=== PATIENT | male | born 1960 | race Caucasian/White ===

== ENCOUNTER → 2017-10-20 10:37 | Outpatient (CLI) | payer OTHER, SELFPAY ==
--- NOTE | 2017-10-20 10:49 | XR_ITS ---
XR chest 2V HISTORY: ITS.REASON: BRONCHITIS ORDERING PHYSICIAN: CAREY Ellis PATIENT AGE: 57 years COMPARISON: None available FINDINGS: The cardiomediastinal silhouette and pulmonary vascularity are within normal limits. The lungs are clear without infiltrates, suspicious nodules, or pleural effusions. No acute bony abnormalities. IMPRESSION: Negative chest, no acute finding
== END ==
PROVIDERS: PCP Family Medicine; Visit Provider Physician Assistant
DX: J40 Bronchitis, not specified as acute or chronic (principal)
CPT/HCPCS: 71046

== ENCOUNTER → 2018-01-11 14:06 | Outpatient (CLI) | payer OTHER, SELFPAY ==
--- NOTE | 2018-01-11 14:16 | XR_ITS ---
XR knee RT 3V HISTORY: ITS.REASON: RT KNEE PAIN ORDERING PHYSICIAN: Freddy Conrad MD PATIENT AGE: 57 years COMPARISON: None FINDINGS: No fracture or dislocation. No lytic or blastic change. Normal mineralization. There are mild osteoarthritic changes of the medial compartment and patellofemoral joint. No other significant findings IMPRESSION: Mild osteoarthritis
== END ==
PROVIDERS: PCP Family Medicine; Visit Provider Family Medicine
DX: M25.561 Pain in right knee (principal)
CPT/HCPCS: 73562

== ENCOUNTER → 2018-01-24 15:32 | Outpatient (CLI) | payer OTHER, SELFPAY ==
--- NOTE | 2018-01-24 15:41 | MR_ITS ---
MR knee RT wo con HISTORY: Right knee pain and swelling ITS.REASON: ACUTE PAIN OF RIGHT KNEE ORDERING PHYSICIAN: Freddy Conrad MD PATIENT AGE: 57 years COMPARISON: 01/11/2018 TECHNIQUE: Standard multiplanar multiecho sequences are performed without contrast. FINDINGS: The cruciate ligaments, collateral ligaments, patellar tendon, and quadriceps tendon have an unremarkable appearance. There is a nondisplaced horizontal tear involving the anterior margin of the lateral meniscus. No evidence of tear of the medial meniscus. The patellar cartilage is well preserved. There is a moderate size knee joint effusion with moderate amount fluid in the suprapatellar region and within the knee joint proper. Multiple varicosities are present along the posterior and medial thigh and medial knee region. There is a small amount subcutaneous edema in the infrapatellar region. No fracture or dislocation. There are mild osteoarthritic changes with some mild decrease in the joint space and minimal osteophyte formation. IMPRESSION: 1. Nondisplaced horizontal tear of the anterior horn of the lateral meniscus. 2. Moderate sized knee joint effusion with a moderate amount fluid in the suprapatellar region. 3. Mild osteoarthritis. 4. Lower extremity varicosities
== END ==
PROVIDERS: Family Provider Family Medicine; PCP Family Medicine; Visit Provider Family Medicine
DX: M25.561 Pain in right knee (principal)
CPT/HCPCS: 73721

== ENCOUNTER → 2018-02-03 13:04 | Outpatient (CLI) | payer OTHER, SELFPAY ==
[2018-02-03 13:31] LABS: Basophils # 0.1 K/mm3 (0-0.2); Basophils % 0.6 % (0.1-2.0); Eosinophils # 0.4 K/mm3 (0.0-0.4); Hemoglobin 16.8 g/dL (14.1-18.0); Lymphocytes # 1.6 K/mm3 (0.7-4.5); Lymphocytes % 20.2 K/mm3 (10-50); Mean Corpuscular HGB Conc 34.4 g/dL (31.8-35.4); Mean Corpuscular Hemoglobin 31.7 pg (27.0-31.2); Mean Corpuscular Volume 92.2 fl (80-94); Mean Platelet Volume 7.9 fl (7.4-10.4); Monocytes # 0.4 K/mm3 (0.1-1.0); Monocytes % 4.8 % (1.7-9.3); Neutrophils # 5.5 K/mm3 (1.8-7.8); Neutrophils % 69.5 % (37.0-80.0); Platelet Count 208 K/mm3 (142-424); Red Blood Count 5.31 M/mm3 (4.60-6.20); Red Cell Distribution Width 12.5 % (11.5-17.5); White Blood Count 7.9 K/mm3 (4.8-10.8)
[2018-02-03 16:04] LABS: Alanine Aminotransferase 45 U/L (12-78); Albumin Level 4.3 gm/dL (3.4-5.0); Albumin/Globulin Ratio 1.3 (1.1-1.8); Alkaline Phosphatase 67 U/L (46-116); Anion Gap 10.6 mEq/L (5-15); Bilirubin,Total 0.4 mg/dL (0.2-1.0); Blood Urea Nitrogen 15 mg/dL (7-18); Calcium 9.4 mg/dL (8.5-10.1); Carbon Dioxide 32 mmol/L (21.0-32.0); Chloride 104 mmol/L (98-107); Creatinine,Serum 0.85 mg/dL (0.70-1.30); Estimated Glomerular Filt Rate 93 ml/min (>60); GFR (African American) 112 ML/MIN (>60); Globulin 3.4 gm/dl (1.3-3.2); Glucose 149 mg/dL (74-106); Sodium 142 mmol/L (136-145); Total Protein,Serum 7.7 gm/dL (6.4-8.2)
[2018-02-03 16:15] LABS: Aspartate Amino Transferase 30 U/L (15-37); Potassium 4.6 mmoL/L (3.5-5.1)
== END ==
PROVIDERS: Visit Provider Orthopaedic Surgery
DX: Z01.818 Encounter for other preprocedural examination (principal)
CPT/HCPCS: 36415; 80053; 85025

== ENCOUNTER 2018-03-09 08:30 | Outpatient (RCR) | payer OTHER, SELFPAY | END 2018-03-09 08:31 | disposition home or self-care (01) | LOC: PT 08:30 | PROVIDERS: Family Provider Family Medicine; PCP Family Medicine; Visit Provider Orthopaedic Surgery | DX: M25.561 Pain in right knee (principal) | CPT/HCPCS: 97014; 97016; 97110; 97163; G0283 ==

== ENCOUNTER → 2019-01-10 08:48 | Outpatient (POV) | payer BC, SELFPAY | PROVIDERS: Visit Provider Dermatology | DX: Z00.00 Encounter for general adult medical examination without abnormal findings (principal) ==

== ENCOUNTER → 2019-04-04 15:51 | Outpatient (CLI) | payer BC, SELFPAY | PROVIDERS: Visit Provider Urology | DX: R39.89 Other symptoms and signs involving the genitourinary system (principal) | CPT/HCPCS: 87086 ==

== ENCOUNTER → 2019-04-05 08:14 | Outpatient (CLI) | payer BC, SELFPAY ==
[2019-04-05 09:00] LABS: Basophils % 0.4 % (0.1-2.0); Eosinophils # 0.1 K/mm3 (0.0-0.4); Hematocrit 47.7 % (42.0-52.0); Hemoglobin 15.8 g/dL (14.1-18.0); Lymphocytes # 1.2 K/mm3 (0.7-4.5); Lymphocytes % 18.4 % (10-50); Mean Corpuscular HGB Conc 33.1 g/dL (31.8-35.4); Mean Corpuscular Volume 93.6 fl (80-94); Mean Platelet Volume 7.8 fl (7.4-10.4); Monocytes # 0.5 K/mm3 (0.1-1.0); Monocytes % 6.8 % (1.7-9.3); Neutrophils # 4.8 K/mm3 (1.8-7.8); Neutrophils % 72.4 % (37.0-80.0); Platelet Count 156 K/mm3 (142-424); Red Cell Distribution Width 12.5 % (11.5-17.5); White Blood Count 6.6 K/mm3 (4.8-10.8)
[2019-04-07 14:03] LABS: Alanine Aminotransferase 68 U/L (12-78); Albumin/Globulin Ratio 1.3 (1.1-1.8); Alkaline Phosphatase 66 U/L (46-116); Aspartate Amino Transferase 36 U/L (15-37); Blood Urea Nitrogen 15 mg/dL (7-18); Calcium 8.5 mg/dL (8.5-10.1); Carbon Dioxide 25 mmol/L (21.0-32.0); Chloride 100 mmol/L (98-107); Estimated Glomerular Filt Rate 76 ml/min (>60); GFR (African American) 93 ML/MIN (>60); Globulin 3.1 gm/dl (1.3-3.2); Glucose 164 mg/dL (74-106); Sodium 136 mmol/L (136-145); Thyroid Stimulating Hormone 1.85 uIU/ml (0.358-3.740); Total Protein,Serum 7.1 gm/dL (6.4-8.2)
[2019-04-12 07:09] LABS: Testosterone, Total, LC/MS 150.1 ng/dL (264.0-916.0); Testosterone,Free 7.5 pg/mL (7.2-24.0)
[2019-04-13 10:38] LABS: Vitamin D 25 Hydroxy 35.6
[2019-04-13 10:39] LABS: Vitamin B12 641
== END ==
PROVIDERS: Physician Assistant; Visit Provider Urology
DX: R53.83 Other fatigue (principal); R50.9 Fever, unspecified; R53.1 Weakness; E29.1 Testicular hypofunction
CPT/HCPCS: 36415; 80053; 82607; 82652; 84402; 84403; 84443; 85025; 86665

== ENCOUNTER → 2019-04-14 09:38 | Outpatient (CLI) | payer BC, SELFPAY ==
[2019-04-16 22:51] LABS: EBV Ab VCA, IgM <36.0 U/mL (0.0-35.9)
== END ==
PROVIDERS: Visit Provider Physician Assistant
DX: R50.9 Fever, unspecified (principal)
CPT/HCPCS: 36415; 86665

== ENCOUNTER → 2019-04-20 09:43 | Outpatient (CLI) | payer BC, SELFPAY ==
--- NOTE | 2019-04-20 | NVE_ITS ---
Venous Exam Indications: 729.81 Swelling of limb. IMPRESSIONS 1. No evidence of deep vein thrombosis involving the right lower extremity 2. Medium-sized superficial vein thrombosis involving the superficial veins of the right lower extremity and right great saphenous vein History: Right lower extremity pain. Swelling of the right lower extremity. Redness of the right lower extremity. Thrombophlebitis involving the right lower extremity. Right lower extremity venous duplex evaluation. Doppler flow study including spectral analysis, color and valladares scale imaging. Location: Vascular laboratory. Patient status: Outpatient. CRITICAL FINDINGS - Reported to: JENIFER Gupta - Read back and verified. - 04/20/19 - 10:15 - RLE negative for DVT. Multiple SVT's seen c/w thrombophlebitis Tables: Venous flow and imaging: + + + + Location Overall Flow properties + + + + Right common femoral Patent Normal phasicity; spontaneous; normal augmentation; compressible + + + + Right saphenofemoral Patent Compressible junction + + + + Right profunda femoral Patent Compressible + + + + Right femoral Patent Normal phasicity; spontaneous; normal augmentation; compressible + + + + Right greater saphenous Totally occluded Absent; diminished spontaneity; no augmentation; noncompressible + + + + Right popliteal Patent Normal phasicity; spontaneous; normal augmentation; compressible + + + + Right posterior tibial Patent Compressible + + + + Right peroneal Patent Compressible + + + + Right gastrocnemius Patent Compressible + + + + Right soleal Patent Compressible + + + + (Report amended ) Electronically signed by: Matty Joy [id number]
== END ==
PROVIDERS: PCP Family Medicine; Visit Provider Physician Assistant
DX: M79.604 Pain in right leg (principal)
CPT/HCPCS: 93971

== ENCOUNTER → 2019-07-05 13:47 | Outpatient (CLI) | payer BC, SELFPAY ==
--- NOTE | 2019-07-05 | CA_ITS ---
APPROVED REPORT Right Lower Extremity Venous Study for DVT. Adjunct Physical Education Instructor: DARLYN Indications Varicose Veins History of thrombophlebitis, history of SVT 04/2019 Risk Factors Prior Phlebitis/DVT Past History SVT : Date : 04/2019 Prior Lower Extremity Venous Duplex Date : 04/2019 Medications Started Xarelto April 2019. Takes daily. Vein Imaging CFV (R): compressive, spontaneous, phasic, augmentation FEM (R): compressive, spontaneous, phasic, augmentation POP (R): compressive, spontaneous, phasic, augmentation PTV (R): Compressible GSV (R): Non-Compressible, Thrombus SSV (R): Compressible Peroneals (R):Compressible GAS (R): Compressible Findings SVT seen in the right proximal GSV unchanged from study done 04/20/19. No DVT visualized in right lower extremity. Conclusion SVT seen in the right proximal GSV unchanged from study done 04/20/19. No DVT visualized in right lower extremity. Electronically signed by : Saulo Fontaine, 07/05/2019 16:09:25
== END ==
PROVIDERS: PCP Family Medicine; Visit Provider Physician Assistant
DX: I82.811 Embolism and thrombosis of superficial veins of right lower extremity (principal)
CPT/HCPCS: 93971

== ENCOUNTER → 2019-10-20 13:52 | Outpatient (CLI) | payer BC, SELFPAY ==
--- NOTE | 2019-10-20 13:56 | CA_ITS ---
APPROVED REPORT Bilateral Lower Extremity Venous Study for DVT. Mapping Specialist: CT Indications follow up from SVT 04/2019 Past History SVT : Medications Xarelto since April 2019 Daily Vein Imaging CFV (R): compressive, spontaneous, phasic, augmentation SFJ (R): compressive, spontaneous, phasic, augmentation FEM (R): compressive, spontaneous, phasic, augmentation POP (R): compressive, spontaneous, phasic, augmentation DFV (R): compressive, spontaneous, phasic, augmentation PTV (R): compressive, spontaneous, phasic, augmentation GSV (R): Partially Compressible Findings No evidence of DVT in the veins scanned of the right lower extremity. Chronic SVT in the GSV. Improved from last exam 07/05/19 Conclusion No evidence of DVT in the veins scanned of the right lower extremity. Chronic SVT in the GSV. Improved from last exam 07/05/19 Electronically signed by : Matty Joy MD 10/20/2019 17:04:51
== END ==
PROVIDERS: PCP Family Medicine; Visit Provider Physician Assistant
DX: I82.811 Embolism and thrombosis of superficial veins of right lower extremity (principal)
CPT/HCPCS: 93971

== ENCOUNTER → 2020-04-15 14:09 | Outpatient (CLI) | payer BC, SELFPAY ==
--- NOTE | 2020-04-15 | CA_ITS ---
APPROVED REPORT Right Lower Extremity Venous Study for DVT. Manager Corporate Communications: CT Indications GSV F/U Medications Xarelto Vein Imaging CFV (R): compressive, spontaneous, phasic, augmentation SFJ (R): compressive, spontaneous, phasic, augmentation FEM (R): compressive, spontaneous, phasic, augmentation POP (R): compressive, spontaneous, phasic, augmentation DFV (R): compressive, spontaneous, phasic, augmentation PTV (R): compressive, spontaneous, phasic, augmentation GSV (R): Partially Compressible SSV (R): compressive, spontaneous, phasic, augmentation Peroneals (R):compressive, spontaneous, phasic, augmentation GAS (R): compressive, spontaneous, phasic, augmentation Incompetent Perforators Findings RLE neg for DVT. RLE + for a chronic SVT approx 1.5 inch mid thigh. Improved from last exam. No reflux noted. Conclusion RLE neg for DVT. RLE + for a chronic SVT approx 1.5 inch mid thigh. Improved from last exam. No reflux noted. Electronically signed by : Matty Joy MD 04/15/2020 19:01:14
== END ==
PROVIDERS: PCP Family Medicine; Visit Provider Physician Assistant
DX: I82.811 Embolism and thrombosis of superficial veins of right lower extremity (principal)
CPT/HCPCS: 93971

== ENCOUNTER → 2021-02-14 16:17 | Outpatient (CLI) | payer BC, SELFPAY ==
--- NOTE | 2021-02-14 16:21 | XR_ITS ---
PROCEDURE: XR KNEE RT 3V CLINICAL INDICATION: ACUTE PAIN OF RT KNEE COMPARISON: CR [id number] XR knee RT 3V from 01/11/2018 FINDINGS: No fracture or dislocation. No lytic or blastic change. There is normal mineralization. Osteoarthritic changes are present involving all 3 compartments. Slightly progressed in the medial compartment. Other findings:None. IMPRESSION: Mild osteoarthritis Dictated by: Matty Joy MD 02/17/2021 08:26 Matty Joy MD in [place] 02/17/2021 08:26
== END ==
PROVIDERS: PCP Physician Assistant; Visit Provider Physician Assistant
DX: M25.561 Pain in right knee (principal)
CPT/HCPCS: 73562

== ENCOUNTER → 2021-04-11 09:42 | Outpatient (CLI) | payer BC, SELFPAY ==
--- NOTE | 2021-04-11 09:52 | XR_ITS ---
PROCEDURE: XR LUMBAR SPINE MIN 4V CLINICAL INDICATION: LOW BACK PAIN COMPARISON: CR LS5 LUMBAR SPINE 5 VIEWS from 04/09/2016 FINDINGS: Mild wedge compression changes involve T11 and T12 similar compared to 04/09/2016. Degenerative disc disease is present at T11-T12 T12-L1 L1-L2 L4-5 and L5-S1. Small anterior osteophytes are present at T11-T12 and L1 slightly progressed. There is mild retrolisthesis of L1 on L2. Facet arthritic changes are present at L5-S1.. There are mild degenerative changes of the SI joints bilaterally. IMPRESSION: Lower thoracic lumbar spondylosis as described above with chronic wedge compression changes of T11 and T12. Dictated by: Matty Joy MD 04/11/2021 10:21 Matty Joy MD in [place] 04/11/2021 10:21
== END ==
PROVIDERS: PCP Physician Assistant; Visit Provider Physician Assistant
DX: M54.5 Low back pain (principal)
CPT/HCPCS: 72110

== ENCOUNTER → 2021-04-24 07:43 | Outpatient (CLI) | payer BC, SELFPAY ==
--- NOTE | 2021-04-24 07:48 | MR_ITS ---
PROCEDURE: MR LUMBAR SPINE WO CON CLINICAL INDICATION: ACUTE MIDLINE LOW BACK PAIN COMPARISON: No exams were available for comparison TECHNIQUE: Multiplanar, multisequence MRI lumbar spine performed without contrast. FINDINGS: Vertebral body heights and alignment are maintained.There is no evidence of bone marrow edema or infiltrative process.The conus medullaris terminates at the L1 vertebral body level. Visualized thoracic spinal cord is unremarkable without evidence of mass signal abnormality. Focal T2 hyperintense lesions are noted in the kidneys bilaterally measuring up to 2 centimeters. Further details by level follow below T12-L1: Small disc bulge without significant canal or foraminal narrowing. L1-2: Broad-based disc bulge and bilateral facet joint hypertrophy causes moderate canal narrowing with crowding of the nerve roots within the thecal sac. There is [id number] bilateral foraminal narrowing. L2-3: Bilateral facet joint hypertrophy is noted causes posterior thecal sac indentation. No significant foraminal narrowing. L3-4: No canal stenosis or neural foraminal narrowing. L4-5: Small broad-based disc bulge causes mild canal narrowing. There is moderate right foraminal narrowing. L5-S1: Broad-based disc bulge, worse on the left causes moderate to severe left foraminal narrowing. No significant canal or right foraminal narrowing is noted. IMPRESSION: Minor multilevel degenerative changes, worse at L1-2 and L5-S1 levels. Moderate to severe left foraminal narrowing at L5-S1. Dictated by: Ivette Solorzano 04/24/2021 11:33 Ivette Solorzano in [place] 04/24/2021 11:33
== END ==
PROVIDERS: PCP Physician Assistant; Visit Provider Physician Assistant
DX: M54.5 Low back pain (principal)
CPT/HCPCS: 72148; 76376

== ENCOUNTER → 2021-05-20 08:29 | Outpatient (POV) | payer BC, SELFPAY | PROVIDERS: Visit Provider Dermatology | DX: Z00.00 Encounter for general adult medical examination without abnormal findings (principal) ==

== ENCOUNTER → 2021-06-18 09:30 | Outpatient (CLI) | payer BC, SELFPAY | PROVIDERS: PCP Family Medicine; Visit Provider Nurse Practitioner | DX: Z20.822 Contact with and (suspected) exposure to COVID-19 (principal) | CPT/HCPCS: C9803; U0003; U0005 ==

== ENCOUNTER → 2021-09-24 08:19 | Outpatient (CLI) | payer BC, SELFPAY | PROVIDERS: PCP Family Medicine; Visit Provider Nurse Practitioner | DX: Z20.822 Contact with and (suspected) exposure to COVID-19 (principal) | CPT/HCPCS: C9803; U0003; U0005 ==

== ENCOUNTER → 2021-10-24 10:00 | Outpatient (CLI) | payer BC, SELFPAY ==
--- NOTE | 2021-10-24 10:15 | XR_ITS ---
FINAL REPORT TECHNIQUE: 3 views CLINICAL HISTORY: CHRONIC NECK PAIN COMPARISON: April 09, 2016 FINDINGS: There is no fracture present. There is no malalignment. There are mild degenerative changes with small osteophytes, stable from prior. IMPRESSION: Mild degenerative change, stable. Reviewed, Interpreted and Dictated by Wilmar Hinojosa III, MD Transcribed by Kendall Carranza Authenticated by Wilmar Hinojosa III, MD on 10/24/2021 11:10:52 AM [facility]
== END ==
PROVIDERS: PCP Family Medicine; Visit Provider Physician Assistant
DX: M54.2 Cervicalgia (principal)
CPT/HCPCS: 72040

== ENCOUNTER → 2022-02-23 08:20 | Outpatient (CLI) | payer BC, SELFPAY | PROVIDERS: PCP Family Medicine; Visit Provider Family Medicine | DX: U07.1 COVID-19 (principal) | CPT/HCPCS: C9803; U0003; U0005 ==

== ENCOUNTER → 2022-07-29 07:11 | Outpatient (CLI) | payer BC, SELFPAY ==
--- NOTE | 2022-07-29 07:34 | MR_ITS ---
FINAL REPORT CLINICAL HISTORY: INJURY OF NECK. FELL DOWN STEPS 1 WEEK AGO. HEADACHE. CANNOT LOOK UP OR DOWN FOR LONG PERIODS OF TIME. FELL OUT OF BARN WHEN 16 YEARS OLD. FINDINGS: Multiplanar MR imaging of the cervical spine was performed without contrast. On the sagittal T2-weighted images, disc degeneration is seen throughout. There is no evidence of fracture. The vertebral alignment is normal. The cervical spinal cord has an unremarkable appearance without evidence of mass, edema or syrinx. No significant canal stenosis is identified. The cervicomedullary junction is normal. C2-3: There is no significant canal stenosis or neural foraminal narrowing. C3-4: Small bilateral uncovertebral osteophytes are present with moderate left neural foraminal narrowing. C4-5: An annular disc bulge is present with mild left neural foraminal narrowing. C5-6: An annular disc bulge is present. There is a small central disc protrusion with mild bilateral neural foraminal narrowing. C6-7: An annular disc bulge is present with mild bilateral neural foraminal narrowing. C7-T1: There is no significant canal stenosis or neural foraminal narrowing. IMPRESSION: Multilevel degenerative disc disease and spondylosis with areas of neural foraminal narrowing. Disc protrusion at C5-6. Reviewed, Interpreted and Dictated by Wilmar Hinojosa III, MD Transcribed by Liliya Aparicio Authenticated and [facility]
== END ==
PROVIDERS: PCP Family Medicine; Visit Provider Physician Assistant
DX: M54.2 Cervicalgia (principal); S19.9XXA Unspecified injury of neck, initial encounter
CPT/HCPCS: 72141; 76376

== ENCOUNTER → 2023-03-18 14:30 | Outpatient (CLI) | payer BC, SELFPAY ==
--- NOTE | 2023-03-18 | CA_ITS ---
FINAL REPORT TECHNIQUE: Color Doppler, duplex Doppler and compression sonography of the right lower extremity venous system was performed. CLINICAL HISTORY: .Right calf pain with not at varicosity FINDINGS: There is no evidence of deep venous thrombosis from the level of the groin to the calf. There is a thrombosed superficial varicosity. IMPRESSION: No evidence of deep venous thrombosis right lower extremity. Thrombosed superficial varicosity. Reviewed, Interpreted and Dictated by Wilmar Hinojosa III, MD Transcribed by Xochitl Gallegos Authenticated and [facility]
== END ==
PROVIDERS: PCP Family Medicine; Visit Provider Physician Assistant
DX: M79.604 Pain in right leg (principal); R60.0 Localized edema
CPT/HCPCS: 93971

== ENCOUNTER → 2023-05-25 08:47 | Outpatient (POV) | payer BC, SELFPAY | PROVIDERS: Visit Provider Specialist/Technologist | DX: Z00.00 Encounter for general adult medical examination without abnormal findings (principal) ==

== ENCOUNTER 2023-06-20 12:25 | Emergency (ER) | payer BC, SELFPAY ==
[2023-06-20 12:35] VITALS: BP 131/87; PULSE 81; RESP 18; TEMP 36.6; O2SAT 99; BMI 33.7
--- NOTE | 2023-06-20 13:05 | EXP.UTC ---
Discharge Plan Disposition Patient Disposition: Home, Self-Care Condition: Good Prescriptions Prescriptions: New prednisone [prednisone] 20 mg tablet 20 mg PO BID 5 Days Qty: 10 0RF benzonatate 100 mg capsule 100 mg PO TID PRN (Reason: cough) Qty: 30 0RF amoxicillin-pot clavulanate 875-125 mg Tablet 1 tab PO Q12H Qty: 20 0RF No Action esomeprazole magnesium [Nexium] 20 mg capsule,delayed release(DR/EC) 20 mg PO QDAY Referrals Follow up/Referrals: Piper Mg PA [Primary Care Provider] - See instructions Activity Restrictions/Add. Instructions Additional Instructions/Restrictions: Start antibiotic today. Be sure to complete entire prescription even if feeling better Monitor temp. Tylenol every 4 hours as needed and / or ibuprofen every 6 hours as needed ( As long as your primary care physician has told you that it ok to take both. For fever/aches/pains ER if no less than 101 despite Tylenol or Motrin Humidifier/vaporizer or hot steamy shower Mucinex during the day for your cough and cough suppressant only at night. Be sure to drink lots of water. *Tessalon Perles will not cause drowsiness but use at bedtime to help stop cough so that you may get some rest. *Start steroid today. Helps with inflammation therefore, cough and wheezing. Follow directions on the package. Reviewed side effects. Patient reports taking them before. Follow up IMMEDIATELY for new or worsening of symptoms OR no noticeable improvement over the next 48-72 hours. 911 immediately for any life threatening symptoms such as chest pain or difficulty breathing Clinical Impressions Clinical Impression: Sinusitis Qualifiers: Sinusitis location: unspecified location Chronicity: unspecified Qualified Code(s): J32.9 - Chronic sinusitis, unspecified Instructions Patient Instructions: DI for Sinusitis, Sinusitis Discharge ED Provider: Myrna Singleton [facility] HPI General Stated complaint: LECHUGA, cough Mode of Arrival: Ambulatory Source of Information: Patient Limitations: No Limitations Time Seen by Provider: 06/20/23 13:05 Description of Symptoms (Recalled from Triage Doc. by RN): sinus infection. After 4 days sore throat, LECHUGA, drainage. There was a neg at home covid test. HEENT Symptoms (Recalled from RN notes): Yes Resp Symptoms (Recalled from RN notes): No Skin Symptoms (Recalled from RN notes): No MS Symptoms (Recalled from RN notes): No Functional Status (Recalled from RN notes): n/a History of Present Illness Provider Complaint: Patient states that he thinks he has a bad sinus infection State that he has been having sinus pain and pressure State that he thought he may have caught something from one of his grandkids but for the last 4 days his sinus pain and pressure has got worse, sore scratchy throat and feels like it is trying to move into his chest States that this morning he coughed up some mucous and the pressure behind his eyes was still there so he came in to get checked Related Data Home Medications Medication Instructions Recorded Confirmed esomeprazole magnesium 20 mg 20 mg PO QDAY acid reflux 10/28/17 04/18/19 capsule,delayed release (Nexium) Previous Rx's Medication Instructions Recorded amoxicillin 875 mg-potassium 1 tab PO Q12H #20 tabs 06/20/23 clavulanate 125 mg tablet benzonatate 100 mg capsule 100 mg PO TID PRN cough #30 caps 06/20/23 prednisone 20 mg tablet 20 mg PO BID 5 days #10 tabs 06/20/23 Allergies Allergy/AdvReac Type Severity Reaction Status Date / Time No Known Allergies Allergy Verified 06/20/23 12:56 Worker's Comp Is this a Worker's Comp case?: No [facility] Disclaimer: The information contained in this section may have been updated after the patient was seen, as this information can be updated by other users. Social History Smoking Status: Unknown if ever smoked alcohol intake: never
[2023-06-20 13:29] VITALS: BP 131/87; PULSE 81; RESP 19; TEMP 36.6; O2SAT 99
== END 2023-06-20 13:29 | disposition home or self-care (01) ==
PROVIDERS: Emergency Provider Nurse Practitioner; PCP Physician Assistant
DX: J01.90 Acute sinusitis, unspecified (principal); R05.9 Cough, unspecified
CPT/HCPCS: 99204; 99212; G0463

== ENCOUNTER 2023-11-08 11:37 | Outpatient (CLI) | payer MEDICARE, BC, SELFPAY ==
[2023-11-08 12:48] LABS: Blood Urea Nitrogen 10 mg/dl (9-20); Estimated Glomerular Filt Rate 114 ml/min (>60); GFR (African American) 138 ML/MIN (>60)
[2023-11-08 13:18] LABS: Prostate Specific Ag Screen 2.2 ng/ml (0.0-4.0)
== END 2023-11-08 23:59 ==
LOC: LAB 11:38
PROVIDERS: PCP Family Medicine; Visit Provider Urology
DX: R35.0 Frequency of micturition (principal); Z12.5 Encounter for screening for malignant neoplasm of prostate
CPT/HCPCS: 36415; 82565; 84520; G0103

== ENCOUNTER 2024-09-08 15:18 | Outpatient (CLI) | payer MEDICARE, BC, SELFPAY ==
--- NOTE | 2024-09-08 15:25 | MR_ITS ---
PROCEDURE INFORMATION: Exam: MR Right Lower Extremity Joint Without Contrast, Knee Exam date and time: 09/08/2024 3:59 PM Age: 64 years old Clinical indication: Patient HX: Right knee pain , swelling; Additional info: Unilateral primary TECHNIQUE: Imaging protocol: Magnetic resonance imaging of the right lower extremity joint without contrast. Exam focused on the knee. COMPARISON: KNEERTWO MR knee RT wo con 01/24/2018 3:56 PM FINDINGS: Bones/joints: Mild cartilaginous defect in the prepatellar and anterior femoral cartilage. Medial meniscus: Unremarkable. No tear. Lateral meniscus: See Soft tissues finding. Anterior cruciate ligament: ACL intact Posterior cruciate ligament: PCL intact Medial capsule and supporting structures: Unremarkable. No tear. Lateral capsule and supporting structures: Unremarkable. No tear. Extensor mechanism of knee: Unremarkable. No tear. Soft tissues: Degenerative signal changes involving the posterior horn of the medial malleolus. Tear of the anterior and posterior horns of the lateral meniscus. Mild suprapatellar joint effusion IMPRESSION: 1. Degenerative signal changes involving the posterior horn of the medial malleolus. Tear of the anterior and posterior horns of the lateral meniscus. 2. ACL intact PCL intact 3. Mild cartilaginous defect in the prepatellar and anterior femoral cartilage.
== END 2024-09-08 23:59 | disposition home or self-care (01) ==
LOC: RAD 15:19
PROVIDERS: PCP Family Medicine; Visit Provider Orthopaedic Surgery
DX: M17.11 Unilateral primary osteoarthritis, right knee (principal)
CPT/HCPCS: 73721

== ENCOUNTER 2025-05-24 09:06 | Outpatient (CLI) | payer MEDICARE, BC, SELFPAY ==
--- OUTSIDE RECORDS SUMMARY | 2024-09-28 07:15 | XMS_ITS ---
Author Organization [facility] Address [address] [place] [phone] Care Team Providers Care Business Services Clerk Name Role Phone Brett Conrad Primary Care Provider Allergies No Known Allergies Results Component Value [...] 3 times a day Active Vital Signs Blood pressure systolic 120 mm Hg 09/28/20 24 Blood pressure diastolic 78 mm Hg 024 Heart Rate 78 /min 09/28/2024 Height 71.50 in 09/28/2024 Weight 253.2 lbs 09/28/2024 BMI 34.82 kg/m2 09/28/2024 Encounters Encounter Location Date Provider Diagnosis [facility] 36 [facility] [address] [place] [id number] 09/28/2024 Brett Novafleet Acute sinusitis J01.90 and Infected sebaceous cyst [...] Appt Details Follow Up: prn, Reason: Provider Name:Brett Prem John nia, 05/24/2025 08:55:00 AM, [address] [facility] 36 [facility], [address], [place], [phone], Progress Notes * Noreen ALARCONinDOB:[birth year] (65 yo M)Acc No.[id number]:09/28/2024 Progress Notes Patient: Padmini ROY Provider: Brett Conrad M.D. :1960 A ge:64 Y S ex:Male Date:09/28/2024 Address:[address] [address], [place], [id number] Subjective: * Chief Complaints: * 1 . [...] Diagno stic Procedure: P rostatis, UTI- [facility], [place], [place] 10/09/2017, RT Leg Thrombophlebitis- [facility] [place] 04/19/2019. * Family History: F ather: [...] Flu Test- Nasal Swab, Modifiers: QW , 75609 COVID TEST IN HOUSE, Modifiers: QW , G2211 Complex e/m visit add on * Follow Up: p rn * Images: Billing Information: * Visit Code: 96204 Office Visit, Est Pt., Level 4. * Procedure Codes: 72851 Flu Test- Nasal Swab. Modifiers: QW 73684 COVID TEST IN HOUSE. Modifiers: QW G2211 Complex e/m visit add on. * Electronic signature of Brett Conrad MD on 05/24/2025 at 09:32 AM EDT Sign off status: Pending * Provider: Brett Conrad M.D. Date: 11/29/2023 Generated for Dudley slois/Shirin/Destinyitting on: 0 05/24/2025 09:32 AM EDT History and Physical Notes * HPI (History [...]
--- OUTSIDE RECORDS SUMMARY | 2025-03-27 05:00 | XMS_ITS ---
Author Organization [facility] Address [address] [place] [id number] Care Team Providers Care Hot Strip Mill Supervisor Name Role Phone Brett Conrad Primary Care Provider Héctor Garza Unavailable [phone] Allergies No Known Allergies Results Component Value [...] Interpretation:Normal Performing Lab: Notes/Report: Test performed by [facility] [address] [place] [address] , [address], [place] [address] Smooth Decker MD, Data Typist CLIA: [id number] Sodium 137 135-145 mmol/L Potassium 4.6 3.5-5.3 [...] Interpretation:Normal Performing Lab: Notes/Report: Test performed by [facility], [address] , [address], [place] [address] Smooth Decker MD, Data Typist CLIA: [id number] Cholesterol 150 <200 mg/dL Triglycerides 76 <150 [...] Interpretation:Normal Performing Lab: Notes/Report: Test performed by [facility] [address] , [address], [place] [address] Smooth Decker MD, Data Typist CLIA: [id number] PSA 2.40 <4.00 ng/mL Please note this is an ultrasensitive PSA assay with a lower limit of detection of 0.014 ng/mL. This test is performed by the [employer] ECLIA methodology. Values obtained with different assay methods or kits cannot be directly compared. P-TSH reflex to FT4 Reviewed date:03/28/2025 10:57:52 AM Interpretation:Normal Performing Lab: Notes/Report: Test performed by [facility] [address] , [address], [place] [address] Smooth Decker MD, Data Typist CLIA: [id number] TSH reflex to FT4 1.08 0.43-5.25 mU/L [...] Status Risk Notes Problem Gastroesophageal reflux disease (106515665) Gastroesophageal reflux disease, unspecified whether esophagitis present (K21.9) Active confirmed Problem Hyperlipidaemia (05500967) Hyperlipidemia, unspecified hyperlipidemia type (E78.5) Active confirmed Problem Obese class I (161299330804984) BMI 33.0-33.9,adult (Z68.33) Active confirmed Vital Signs Blood pressure systolic 124 mm Hg 03/27/20 25 Blood pressure diastolic 72 mm Hg 025 Heart Rate 67 /min 03/27/2025 Height 71.50 in 03/27/2025 Weight 246 lbs 03/27/2025 BMI 33.83 kg/m2 03/27/2025 Encounters Encounter Location Date Provider Diagnosis [facility] [address] [facility] [address] [place] [phone] 03/27/2025 Héctor Garza Gastroesophageal ref lux disease, unspecified whether esophagitis present K21.9 ; Anxiety F41.9 ; Hyperlipidemia, unspecified hyperlipidemia type E78.5 ; Prostate cancer screening Z12.5 ; vermin exterminator use of drug Z79.899 and BMI 33.0-33.9,adult Z68.33 Assessments Encounter Date Diagnosis (ICD Code) Assessment Notes Treatment Notes Treatment Clinical Notes Section Notes 03/27/2025 Gastroesophageal reflux disease, unspecified whether esophagitis present (ICD-10 - K21.9) 03/27/2025 Anxiety (ICD-10 - F41.9) 03/27/2025 Hyperlipidemia, unspecified hyperlipidemia type (ICD-10 - E78.5) 03/27/2025 Prostate cancer screening (ICD-10 - Z12.5) 03/27/2025 half-way use of drug (ICD-10 - Z79.899) 03/27/2025 BMI 33.0-33.9,adult (ICD-10 - Z68.33) Plan Of Treatment Medication Medication Name Sig Start Date Stop Date Notes DULoxetine HCl 30 MG 1 capsule Orally On ce a day; Duration: 90 days 03/27/2025 Esomeprazole Magnesium 40 MG TAKE 1 CAPSULE BY MOUTH DAILY Next Appt Details Follow Up: 2 Months, Reason: Provider Name:Brett Ricketts, 05/24/2025 08:55:00 AM, [address] [facility], [address], [place], [phone], Progress Notes * Noreen ALARCONinDOB:[birth year] (65 yo M)Acc No.[id number]:03/27/2025 Progress Notes Patient: Jenn KOKONoreenin Provider: Shereen Garza M.D. :1960 A ge:65 Y S ex:Male Date:03/27/2025 Address:[address], [place], [id number] Pcp:Brett Conrad Subjective: * Chief Complaints: * [...] Hospitalization/Major Diagno stic Procedure: P rostatis, UTI- [place], [place] 10/09/2017, [place] [facility] [place] * Family History: [...] Temp: 97.8, BP: 124/72, HR: 67, Nurse: елена/annamaria, Ht: 71.50, BMI:33.83. * Examination: P sychology: [...] rostate cancer screening - Z12.5 5 . half-way use of drug - Z79.[address] 33.0-33.9,adult - Z68.33 ? Plan: * Treatment: [...] > LM for pt to return call [facility] 03/28/2025 10:57:34 AM EDT > pt informed, [...] > LM for pt to return call [facility] 03/28/2025 10:57:34 AM EDT > pt informed, picking up a copy of results ?LAB: P-TSH reflex to FT4 (Collection Date & Time - 03/27/2025 08:37 AM)? Normal* Value Reference Range T SH reflex to FT4 1.08 0.43-5.25 - mU/L * Mere Lee 03/28/2025 10:52: 19 AM EDT > LM for pt to return call [facility] 03/28/2025 10:57:34 AM EDT > pt informed, [...] informed, picking up a copy of results 5.?vermin exterminator use of drug?LAB: CBC Venipuncture (in house) [...] latlet 209 100 - 400 * Corrie Ehceverria 03/27/2025 12 :25:28 PM EDT > Mere Lee 03/28/2025 10:52:19 AM EDT > LM for pt to return call Ela Rosario 03/28/2025 10:57:34 AM EDT > pt informed, picking up a copy of results * Procedure Codes: G 2211 Complex e/[place], [address] CBC WITH AUTO DIFF, 1036F TOBACCO NON-USER, [...] * Images: Billing Information: * Visit Code: 69595 Office Visit, Est Pt., Level 4. * Procedure Codes: G2211 Complex e/[place]. [address] CBC WITH AUTO DIFF. 1036F TOBACCO NON-USER. G8783 BP SCR PRFRM RCMDD DEFIND SCR INTVL. G8752 MOST RECENT SYSTOLIC BP < 140MM HG. G8754 MOST RECENT DIASTOLIC BP < 90MM HG. 3017F COLORECTAL CA SCREEN DOC REV. * Electronic signature of Saadia Garza MD on 05/24/2025 at 09:31 AM EDT Sign off status: Pending * Provider: Shereen Garza M.D. Date: 0 03/27/2025 Generated for Dudley solis/Shirin/Igorsmitting on: 0 05/24/2025 09:31 AM EDT History and Physical Notes * [...]
--- OUTSIDE RECORDS SUMMARY | 2025-05-23 07:30 | XMS_ITS ---
Author Organization [facility] Address [address] [facility] [address] [facility] [address] [place] [phone] Care Team Providers Care Track Template Maker Name Role Phone Brett Conrad Primary Care Provider Piper Mg Unavailable [phone] Allergies No Known Allergies REASON FOR VISIT neck pain Medications Medication [...] W/U Status Risk Notes Problem Neck pain (M54.2) Active confirmed Vital Signs Blood pressure systolic 118 mm Hg 05/23/20 25 Blood pressure diastolic 72 mm Hg 025 Heart Rate 72 /min 05/23/2025 Height 71.50 in 05/23/2025 Weight 249.2 lbs 05/23/2025 BMI 34.27 kg/m2 05/23/2025 Encounters Encounter Location Date Provider Diagnosis [facility] [address] [facility] [address] [facility] [address] [place] [phone] 05/23/2025 Piper Mg Neck pain M54.2 and Muscle spasm M62.838 Assessments Encounter Date Diagnosis (ICD Code) Assessment Notes Treatment Notes Treatment Clinical Notes Section Notes 05/23/2025 Neck pain (ICD-10 - M54.2) 05/23/2025 Muscle spasm (ICD-10 - M62.838) Plan Of Treatment Medication Medication Name Sig Start Date Stop Date Notes Cyclobenzaprine HCl 5 MG 1 tab(s) orally 3 times a day, prn Pending Test Test Name Order Date X ray : Spine, cervical A-P and Lateral 05/23/2025 Next Appt Details Follow Up: via phone to repo rt test results, Reason: Provider Name:Brett Ricketts, 05/24/2025 08:55:00 AM, [address] [facility] [address], [address], [place], [place], [phone], Progress Notes * Noreen ALARCONinDOB:[birth year] (65 yo M)Acc No.[id number]:05/23/2025 Progress Notes Patient: Padmini ROY Provider: CAREY Lei :1960 A ge:65 Y S ex:Male Date:05/23/2025 Address:[address] [facility] [address], [id number] Pcp:Brett Conrad Subjective: * Chief Complaints: * [...] Hospitalization/Major Diagno stic Procedure: P rostatis, UTI- [facility], [place], [place] 10/09/2017, RT Leg Thromboph[place]is- [facility] [place]. * Family History: F ather: alive, [...] Temp: 97.6, BP: 118/72, HR: 72, Nurse: pe, Ht: 71.50, BMI:34.27. * Examination: G eneral [...] spasm - M62.838 ? Plan: * Treatment: 2. M uscle spasm Refill Cyclobenzaprine HCl Tablet, 5 MG, 1 tab(s), orally, 3 times a day, prn, 30, Refills 3. ? * Follow Up: v ia phone to report test results * Images: Billing Information: * Visit Code: 07121 Office Visit, Est Pt., Level 3. * Procedure Codes: * Electronic signature of CAREY Powell on 05/24/2025 at 09:31 AM EDT Sign off status: Pending * Provider: CAREY Lei Date: 0 05/23/2025 Generated for Dudley solis/Shirin/Leola on: 0 05/24/2025 09:31 AM EDT History [...]
--- NOTE | 2025-05-24 09:23 | XR_ITS ---
FINAL REPORT CLINICAL HISTORY: NECK PAIN, fx in C-Spine when 16 y/o. increased pain x 2 weeks ago after hitting head on a trailer. COMPARISON: 10/24/2021 FINDINGS: CERVICAL SPINE 5 views were obtained. There is no acute fracture or malalignment. Inter-vertebral disc and vertebral body heights are preserved. There is mild anterior osteophyte formation at C5-6. Facet joints are properly aligned. No significant degenerative changes are present. IMPRESSION: No acute process. Reviewed, Interpreted and Dictated by Freddy Smith MD Transcribed by Antonella Alarcon Authenticated and [facility]
--- OUTSIDE RECORDS SUMMARY | 2025-05-24 09:32 | XMS_ITS | Patient Health Record ---
Author Organization [facility] Address [address] [place] [phone] Care Team Providers Care Tool Procurement Coordinator Name Role Phone Brett Conrad Primary Care Provider Héctor Garza Unavailable [phone] Piper Mg Unavailable [phone] Allergies No Known Allergies Results Component Value [...] Interpretation:Normal Performing Lab: Notes/Report: Test performed by [facility] , [address], [place] [address] Smooth Decker MD, Grey Goods Examiner CLIA: [id number] Sodium 137 135-145 mmol/L Potassium 4.6 3.5-5.3 [...] Interpretation:Normal Performing Lab: Notes/Report: Test performed by [facility], [address] , [place] [address] Smooth Decker MD, Grey Goods Examiner CLIA: [id number] Cholesterol 150 <200 mg/dL Triglycerides 76 <150 [...] Interpretation:Normal Performing Lab: Notes/Report: Test performed by [facility] [address] , [place] [address] Smooth Decker MD, Grey Goods Examiner CLIA: [id number] PSA 2.40 <4.00 ng/mL Please note this is an ultrasensitive PSA assay with a lower limit of detection of 0.014 ng/mL. This test is performed by the [employer] ECLIA methodology. Values obtained with different assay methods or kits cannot be directly compared. P-TSH reflex to FT4 Reviewed date:03/28/2025 10:57:52 AM Interpretation:Normal Performing Lab: Notes/Report: Test performed by [facility] [address] [place] [address] , [place] [id number] Smooth Decker MD, Grey Goods Examiner CLIA: [id number] TSH reflex to FT4 1.08 0.43-5.25 mU/L Influenza Screen (in house) Reviewed date:09/28/2024 11:03:21 AM Interpretation:neg Performing Lab: Notes/Report: neg results neg Covid test (in house) Reviewed date:09/28/2024 11:03:09 AM Interpretation:neg Performing Lab: Notes/Report: neg Result: neg Reason For Referral No Information Medications Medication SIG (Take, Route, Frequency, Duration) Notes Start Date End Date Status Tylenol 8 Hour Arthritis Lida n 650 MG 2 tab(s) orally once daily Active Cyclobenzaprine HCl 5 MG 1 tab(s) orally 3 times a day, prn Active Esomeprazole Magnesium 40 MG TAKE 1 CAPS ULE BY MOUTH DAILY Active Immunizations Vaccine Route Administration Date Status Comme nts COVID 19 Pfizer Unknown 12/09/2020 Administered COVID 19 Pfizer Unknown 01/06/2021 Administered COVID 19 Pfizer Unknown 07/24/2021 Administered DT, 7 YEARS OR OLDER Unknown 12/05/1996 Administered Flublok IM Intramuscular 07/15/2020 Administered Fluzone Quad (6months&older) IM Intramuscular 09/16/2021 Administered Tetanus Tdap-Adacel (over 7yrs) IM Intramuscular 05/13/2023 Administered Problems Problem Type SNOMED Code ICD Code Onset Dates Problem Status W/U Status Risk Notes Problem Gastroesophageal reflux disease (disorder) (009358092) GERD [Gastroesophageal reflux disease] (530.81) Active confirmed Problem Hyperlipidemia (65298379) Hyperlipidemia (272.4) Active confirmed Problem Gastroesophageal reflux disease (231338796) GERD (gastroesophageal reflux disease) (K21.9) Active confirmed Problem Anxiety (99372373) Anxiety (F41.9) Active confi rmed Problem Obese class I (204620094122164) BMI 33.0-33.9,adult (Z68.33) Active confirmed Problem Chronic pain (12894936) Other chronic pain (G89.29) Active confirmed Problem Neck pain (80264762) Neck pain (M54.2) Active confirmed Problem Insomnia disorder related to another mental disorder (39595385) Psychophysiological insomnia (F51.04) Active confirmed Problem Osteoarthritis of knee (860348021) Primary osteoarthritis of right knee (M17.11) Active confirmed Problem Hyperlipidaemia (36374994) Hyperlipidemia, unspecified hyperlipidemia type (E78.5) Active confirmed Problem Cervical spondylosis without myelopathy (214412037) Osteoarthritis of spine with radiculopathy, cervical region (M47.22) Active confirmed Problem Lower urinary tract symptoms due to benign prostatic hypertrophy (61471100735741) Benign prostatic hyperplasia with lower urinary tract symptoms (N40.1) Active confirmed Problem Arthritis of right knee (8152044226590355) Arthritis of right knee (M17.11) Active confirmed Problem Seasonal allergic rhinitis (569286056) Seasonal allergic rhinitis, unspecified trigger (J30.2) Active confirmed Problem Hearing loss (76565547) 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 (H91.92) Active confirmed Problem Lumbosacral spondylosis without myelopathy (55870442) DJD (degenerative joint disease), lumbosacral (M47.817) Active confirmed Problem Plantar nerve lesion (850213039) 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 90 and Infected sebaceous cyst of skin L72.3 [facility] [address] [place] [address] [place] [phone] 03/27/2025 Héctor [place] Gastroesophageal ref lux disease, unspecified whether esophagitis present K21.9 ; Anxiety F41.9 ; Hyperlipidemia, unspecified hyperlipidemia type E78.5 ; Prostate cancer screening Z12.5 ; terminal manager use of drug Z79.899 and BMI 33.0-33.9,adult Z68.33 [facility] [address] [place] [address] [place] [id number] 05/23/2025 Piper Crowdy Neck pain M54.2 and Muscle spasm M62.838 [facility] [address] [place] [address] [place] [phone] 05/24/2025 Brett Conrad [facility] [address] [place] [address] [place] [phone] 11/03/2024 Brett Conrad GERD (gastroesophage al reflux disease) K21.9 Assessments Encounter Date Diagnosis (ICD Code) Assessment Notes Treatment Notes Treatment Clinical Notes Section Notes 09/28/2024 Acute sinusitis (ICD-10 - J01.90) 09/28/2024 Infected sebaceous cyst of skin (ICD-10 - L72.3) Warm compresses 11/03/2024 GERD (gastroesophageal reflux disease) (ICD-10 - K21.9) 03/27/2025 Anxiety (ICD-10 - F41.9) 03/27/2025 Gastroesophageal reflux disease, unspecified whether esophagitis present (ICD-10 - K21.9) 05/23/2025 Neck pain (ICD-10 - M54.2) 05/23/2025 Muscle spasm (ICD-10 - M62.838) 03/27/2025 Hyperlipidemia, unspecified hyperlipidemia type (ICD-10 - E78.5) 03/27/2025 Prostate cancer screening (ICD-10 - Z12.5) 03/27/2025 skilled nursing use of drug (ICD-10 - Z79.899) 03/27/2025 BMI 33.0-33.9,adult (ICD-10 - Z68.33) Plan Of Treatment Pending Test Test Name Order Date X ray : Spine, cervical A-P and Lateral 05/23/2025 Next Appt Details Provider Name:Brett Ricketts, 05/24/2025 08:55:00 AM, [address], [place], [place], [phone], Insurance Providers Payer Name Payer Address Payer Phone Subscriber Number Group Number Insured Name Patient Relationship to Insured Coverage Start Date Coverage End Date MEDICARE PART B [address] [address] [place] [address] [phone] [id number] Padmini Alarcon Self - patient is the insured [employer] [facility] [address] [place] [address] [id number] Myrna Alarcon Spouse - patient is the spouse of the insured Medications Administered Medication Instructions Date of Administration Dosage Notes Dexamethasone 09/21/2016 1 mL Medical (General) History Medical History History ICD Code Hiatal Hernia, Stricture Tx 1992 GERD Varicose Veins Anxiety Elbow Tendinitis RT Thigh SVT, 04/2019 Colon polyps Surgical History Surgery Date(Month/Year) Tonsillectomy 2002 Colonoscopy, 2007, 2021 Anal Fistulectomy - Dr. Martel 11/17/19 14 Varicose Veins RT Knee Arthroscopy for Meniscal Tear Hospitalization History Reason Date(Month/Year) Prostatis, UTI- [facility], [place] , [place] 10/09/2017 RT Leg [place] [facility] [place]
== END 2025-05-24 23:59 | disposition home or self-care (01) ==
LOC: RAD 09:10
PROVIDERS: PCP Physician Assistant; Visit Provider Physician Assistant
DX: M54.2 Cervicalgia (principal); W22.8XXA Striking against or struck by other objects, initial encounter
CPT/HCPCS: 72050

== ENCOUNTER 2025-08-22 11:48 | Outpatient (CLI) | payer MEDICARE, BC, SELFPAY ==
--- NOTE | 2025-08-22 11:54 | XR_ITS ---
FINAL REPORT TECHNIQUE: Chest PA & Lateral CLINICAL HISTORY: BRONCHITIS COMPARISON: None FINDINGS: 2 views of the chest were performed. The heart size is normal. The mediastinum is within normal limits. There is no acute cardiopulmonary process. There are no pleural effusions. There is no pneumothorax. The bony thorax appears intact. IMPRESSION: No acute cardiopulmonary process. Reviewed, Interpreted and Dictated by Freddy Smith MD Transcribed by Sonja Rodrigues Authenticated and [facility]
--- OUTSIDE RECORDS SUMMARY | 2025-08-22 13:00 | XMS_ITS | Clinical Summary ---
Author Organization [facility] Address [address] [place] [address] Phone Care Team Providers Care Batch Attendant Name Role Phone Cecy ELLIS, Ab Lerner Unavailable [phone] CAREN ELLIS, AMY Primary Care Provider [phone] Reason for Visit and Chief Complaint [facility]ty [facility] Injection Problems Includes: Problems addressed during this encounter and other active Problems All Visits Onset Date Resolved Date Provider Condition S tatus Neck Pain 10/29/2022 Dale Abdullahi MD Active Last Documented On 3 9:10AM ; [facility], [facility] Lower Back Pain 06/26/2021 Dale Abdullahi MD Act maximino Last Documented On 1 10:06AM ; [facility], [facility] Joint Pain Right Knee 03/14/2021 Javan Stephens MD Active Last Documented On 1 10:21AM ; [facility], [facility] Joint Pain Knee 02/03/2018 Ab Sam MD Active Last Documented On 8 9:25AM ; [facility], [facility] Plan of Treatment No Plan of Treatment Recorded Assessments Includes: Assessments from this encounter No Assessments Recorded Medical Equipment - Implanted Devices Includes: Current Devices No Medical Equipment Recorded Medications Includes: Medications discussed during this encounter and other current Medications Current Medications (continue as prescribed) oxyBUTYnin Chloride ER 10 MG Oral Tablet Extended Release 24 Hour 11/08/2023 Provider: Diagnosis: Last Documented On 4 8:30AM By Betty Cullen ; [facility], [facility] Tamsulosin HCl 0.4 MG Oral Capsule 11/08/2023 Provid er: Diagnosis: Last Documented On 4 8:30AM By Betty Cullen ; [facility], [facility] Esomeprazole Magnesium 40 MG Oral Capsule Delayed Release 10/25/2023 Provider: AMY FABIAN MD Diagnosis: Last Documented On 4 8:30AM By Betty Cullen ; [facility], [facility] Cyclobenzaprine HCl 5 MG Oral Tablet 10/07/2023 Prov ider: Diagnosis: Last Documented On 4 8:30AM By Betty Cullen ; [facility], [facility] Esomeprazole Magnesium 40 MG Oral Capsule Delayed Release 09/28/2023 Provider: AMY FABIAN MD Diagnosis: Last Documented On 4 8:30AM By Betty Cullen ; [facility], [facility] Triamcinolone Acetonide 0.1% External Cream 07/05/2023 Provider: Diagnosis: Last Documented On 4 8:30AM By Betty Cullen ; [facility], [facility] Triamcinolone Acetonide 0.1% External Cream 07/05/2023 Provider: Diagnosis: Last Documented On 4 8:30AM By Betty Cullen ; [facility], [facility] NexIUM 20 MG Oral Capsule Delayed Release 03/14/2021 Provider: Diagnosis: Last Documented On 1 10:29AM By Rita Watt ; [facility], [facility] Vitamin D3 250 MCG (27560 UT) Oral Capsule 021 Provider: Diagnosis: Last Documented On 1 10:30AM By Rita Watt ; [facility], [facility] Joe Aspirin 325 MG Oral Tablet 03/14/2021 Provider : Diagnosis: Last Documented On 1 10:29AM By Rita Watt ; [facility], [facility] Medications Administered Includes: Administered Medications from this encounter No Administered Medications Recorded Results Includes: Results discussed during this encounter No Results Recorded For Specified Dates History of Present Illness Includes: History of Present Illness from this encounter No History of Present Illness Recorded Social History No Social History Recorded - Smoking Status Unknown Medical History Includes: Medical History addressed during this encounter No Medical History Recorded Family History Includes: Family History addressed during this encounter No Family History Recorded Review of Systems Includes: Review of Systems from this encounter No Review of Systems Recorded Mental Status Includes: Mental Status from this encounter No Mental Status Recorded Functional Status Includes: Functional Status from this encounter No Functional Status Recorded Physical Exam Includes: Physical Exam from this encounter No Physical Exam Recorded Allergies Includes: Active Allergies No Known Allergies Encounters Encounter Provider Location Date Check-In Time Check-Out Time Diagnosis Specialty [facility] Jorden Camacho PA-C [facility] 08/12/20 22 9:11AM 9:28AM Insurance Includes: Active Insurance Policies Plan Name Member ID Group # Subscriber Relationship Effect maximino Dates 1 - Medicare [place] [id number] Padmini Alarcon Self 2 - [employer] [id number] Myrna Alarcon 10/04/2020 - Unknown Clinical Notes Includes: Clinical Notes from this encounter No Clinical Notes Recorded
--- OUTSIDE RECORDS SUMMARY | 2025-08-22 13:00 | XMS_ITS ---
Care Plan - [facility], [facility] Created on: August 22, 2025 Padmini Alarcon : 1960 Sex: Male Author Organization [facility] , [facility] Address [address] [place] [address] Phone Care Team Providers Care Instrument Assembly Supervisor Name Role Phone Cecy ELLIS, Ab Lerner Unavailable [phone] CAREN ELLIS, AMY Primary Care Provider [phone]
--- OUTSIDE RECORDS SUMMARY | 2025-08-22 13:00 | XMS_ITS ---
Author Organization [facility] [place] Address [address] [place] [address] Phone Care Team Providers Care Manager Quantitative Name Role Phone Cecy ELLIS, Ab Lerner Unavailable [phone] CAREN ELLIS, [place] Primary Care Provider [phone] Reason for Referral Date Encounter Description Provider Reason for Referral 12/04/21 Follow Up Javan robertson MD Referral To Physician - for elevated bp 11/27/21 Follow Up Dale Abdullahi MD Referral To Physician - TO SEE PCP FOR BP 10/08/21 Follow Up Garrett Aparicio PA-C Referral To Physician - TO SEE PCP FOR BP 05/29/21 Follow Up Javan robertson MD Referral To Physician - for elevated bp 03/14/21 Physician Specified Javan Stephens MD Referral To Physician - for elevated bp Problems Includes: Active, inactive, and resolved Problems All Visits Onset Date Resolved Date Provider Condition S tatus Neck Pain 10/29/2022 Dale Abdullahi MD Active Last Documented On 3 9:10AM ; [facility] [place] Lower Back Pain 06/26/2021 Dale Abdullahi MD Act maximino Last Documented On 1 10:06AM ; [facility] [place] Joint Pain Right Knee 03/14/2021 Javan Stephens MD Active Last Documented On 1 10:21AM ; [facility] [place] Joint Pain Knee 02/03/2018 Ab Sam MD Active Last Documented On 8 9:25AM ; [facility] Plan of Treatment Pending Tests Order Diagnosis Results Due Ordering P rovider Radiology - MRI MRI Knee Pain in right knee 08/31/24 C kristin Stephens MD Last Documented On 4 11:16AM ; [facility] Referrals To Diagnosis Consult with Orthopedic Last Documented On 1 1:37PM ; [facility] Instructions to patient Lose weight Last Documented On 4 8:31AM ; [facility] Lose weight Last Documented On 3 8:28AM ; [facility] Lose weight Last Documented On 2 8:35AM ; [facility] Lose weight Last Documented On 2 8:58AM ; [facility] Lose weight Last Documented On 2 9:53AM ; [facility] Lose weight Last Documented On 1 8:23AM ; [facility] Lose weight Last Documented On 1 10:16AM ; [facility] Lose weight Last Documented On 1 10:07AM ; [facility] Lose weight Last Documented On 1 11:13AM ; [facility] Lose weight Last Documented On 1 10:38AM ; [facility] Instructions for patient see pcp for weight and elevated bp Last Documented On 8 1:30PM ; [facility] Lose weight Last Documented On 8 1:30PM ; [facility] Instructions for patient see pcp for weight and elevated bp Last Documented On 8 9:34AM ; [facility] Lose weight Last Documented On 8 9:34AM ; [facility] Instructions for patient see pcp for weight and elevated bp Last Documented On 8 8:38AM ; [facility] Lose weight Last Documented On 8 8:38AM ; [facility] Instructions for patient see pcp for weight and elevated bp Last Documented On 8 9:41AM ; [facility] Lose weight Last Documented On 8 9:41AM ; [facility] Assessments Includes: Assessments for all patient encounters Findings Encounter Date Overweight Follow Up with Jorden High 11/10/2023 Last Documented On 4 8:46AM ; [facility] Overweight NEW PROBLEM/EST PT with Dale Abdullahi MD 10/29/2022 Last Documented On 4 12:56PM ; [facility] Instructions Includes: Instructions for all patient encounters Instructions to patient Lose weight Last Documented On 4 8:31AM ; [facility] Lose weight Last Documented On 3 8:28AM ; [facility] Lose weight Last Documented On 2 8:35AM ; [facility] Lose weight Last Documented On 2 8:58AM ; [facility] Lose weight Last Documented On 2 9:53AM ; [facility] Lose weight Last Documented On 1 8:23AM ; [facility] Lose weight Last Documented On 1 10:16AM ; [facility] Lose weight Last Documented On 1 10:07AM ; [facility] Lose weight Last Documented On 1 11:13AM ; [facility] Lose weight Last Documented On 1 10:38AM ; [facility] Instructions for patient see pcp for weight and elevated bp Last Documented On 8 1:30PM ; [facility] Lose weight Last Documented On 8 1:30PM ; [facility] Instructions for patient see pcp for weight and elevated bp Last Documented On 8 9:34AM ; [facility] Lose weight Last Documented On 8 9:34AM ; [facility] Instructions for patient see pcp for weight and elevated bp Last Documented On 8 8:38AM ; [facility] Lose weight Last Documented On 8 8:38AM ; [facility] Instructions for patient see pcp for weight and elevated bp Last Documented On 8 9:41AM ; [facility] Lose weight Last Documented On 8 9:41AM ; [facility] Medical Equipment - Implanted Devices Includes: Current and historical Devices No Medical Equipment Recorded Medications Includes: Current and historical Medications Current Medications (continue as prescribed) oxyBUTYnin Chloride ER 10 MG Oral Tablet Extended Release 24 Hour 11/08/2023 Provider: Diagnosis: Last Documented On 4 8:30AM By Betty Cullen ; [facility] Tamsulosin HCl 0.4 MG Oral Capsule 11/08/2023 Provid er: Diagnosis: Last Documented On 4 8:30AM By Betty Cullen ; [facility] Esomeprazole Magnesium 40 MG Oral Capsule Delayed Release 10/25/2023 Provider: AMY FABIAN MD Diagnosis: Last Documented On 4 8:30AM By Betty Cullen ; [facility] Cyclobenzaprine HCl 5 MG Oral Tablet 10/07/2023 Prov ider: Diagnosis: Last Documented On 4 8:30AM By Betty Cullen ; [facility] Esomeprazole Magnesium 40 MG Oral Capsule Delayed Release 09/28/2023 Provider: AMY FABIAN MD Diagnosis: Last Documented On 4 8:30AM By Betty Cullen ; [facility] Triamcinolone Acetonide 0.1% External Cream 07/05/2023 Provider: Diagnosis: Last Documented On 4 8:30AM By Betty Cullen ; [facility] Triamcinolone Acetonide 0.1% External Cream 07/05/2023 Provider: Diagnosis: Last Documented On 4 8:30AM By Betty Cullen ; [facility] NexIUM 20 MG Oral Capsule Delayed Release 03/14/2021 Provider: Diagnosis: Last Documented On 1 10:29AM By Rita Watt ; [facility] Vitamin D3 250 MCG (46334 UT) Oral Capsule 021 Provider: Diagnosis: Last Documented On 1 10:30AM By Rita Watt ; [facility] [place] Joe Aspirin 325 MG Oral Tablet 03/14/2021 Provider : Diagnosis: Last Documented On 1 10:29AM By Rita Watt ; [facility] [place] Past Medications on file Clarkia 10-325MG Oral Tablet 02/08/2018 - 08/23/2018 Pro vider: Ab Sam MD Diagnosis: 1 every 4 - 6 hours as needed for pain Last Documented On 8 1:30PM By Taty Thomas ; [facility] [place] [facility] Esomeprazole Magnesium 2 0MG Oral Capsule Delayed Release 01/26/2018 - 03/14/2021 Provider: AMY VALVERDE MD Diagnosis: Last Documented On 1 10:29AM By Rita Watt ; [facility] [place] Dutasteride-Tamsulosin HCl 0.5-0.4MG Oral Capsule 01/26/2018 - 03/14/2021 Provider: MARIBETH BACA MD Diagnosis: Last Documented On 1 10:29AM By Rita Watt ; [facility] [place] Diclofenac Sodium 75MG Oral Tablet Delayed Release 01/11/2018 - 03/14/2021 Provider: AMY Livingston MD Diagnosis: Last Documented On 1 10:29AM By Rita Watt ; [facility] [place] Medications Administered Includes: Administered Medications in patient's chart No Administered Medications Recorded Results Includes: Results from 08/22/2024 through 08/22/2025 No Results Recorded For Specified Dates History of Present Illness History of Present Illness not supported for this document type No History of Present Illness Recorded Social History Description Last Updated Tobacco non-user 10/29/2022 Last Documented On 4 12:56PM ; [facility] [place] No recent change in diet 10/29/2022 Last Documented On 4 12:56PM ; [facility] [place] Not a current smoker. 10/29/2022 Last Documented On 4 12:56PM ; [facility] [place] Non-smoker 03/14/2021 Last Documented On 1 2:18PM ; [facility] [place] Not a current smoker. 03/14/2021 Last Documented On 1 2:18PM ; [facility] [place] No tobacco use 02/03/2018 Last Documented On 8 11:51AM ; [facility] [place] Smoking status : Never smoker 02/03/2018 Last Documented On 8 11:51AM ; [facility] [place] Alcohol use 02/03/2018 Last Documented On 8 11:51AM ; [facility] [place] Caffeine use 02/03/2018 Last Documented On 8 11:51AM ; [facility] [place] Exercising regularly 02/03/2018 Last Documented On 8 11:51AM ; [facility] [place] No recent change in diet 02/03/2018 Last Documented On 8 11:51AM ; [facility] [place] Not a current smoker 02/03/2018 Last Documented On 8 11:51AM ; [facility] [place] Not using drugs 02/03/2018 Last Documented On 8 11:51AM ; [facility] [place] Medical History Includes: Medical History in patient's chart Description Last Updated Heartburn / Acid Reflux 03/14/2021 Last Documented On 1 2:18PM ; [facility] [place] History of Arthroscopy 03/14/2021 Last Documented On 1 2:18PM ; [facility] [place] History of Blood Clots 03/14/2021 Last Documented On 1 2:18PM ; [facility] [place] No recent immunization for pneumococcal pneumonia 03/14/2021 Last Documented On 1 2:18PM ; [facility] [place] Recent immunization for flu 03/14/2021 Last Documented On 1 2:18PM ; [facility] [place] vericose vein 02/03/2018 Last Documented On 8 11:51AM ; [facility] [place] Arthritic joint problems 02/03/2018 Last Documented On 8 11:51AM ; [facility] [place] Family History Includes: Family History in patient's chart Description Last Updated Family history of osteoporosis 1 Last Documented On 1 2:18PM ; [facility] [place] No significant family history 02/03/2018 Last Documented On 8 11:51AM ; [facility] [place] Review of Systems Review of Systems not supported for this document type No Review of Systems Recorded Mental Status No Mental Status Recorded Functional Status No Functional Status Recorded Physical Exam Physical Exam not supported for this document type No Physical Exam Recorded Immunizations Includes: Immunizations in patient's chart Vaccine Dose # Date Site Reaction(s) Status Source Influenza 1 07/04/2020 Complete (Reported) Patient Last Documented On 1 10:37AM ; [facility] [place] Allergies Includes: Active, inactive, and resolved Allergies No Known Allergies Insurance Includes: Active Insurance Policies Plan Name Member ID Group # Subscriber Relationship Effect maximino Dates 1 - Medicare Part B [facility] [id number] Padmini Alarcon Self 2 - [facility] [id number] AgnesMyrna 10/04/2020 - Unknown Clinical Notes Includes: Signed Clinical Notes starting from 09/17/2022 No Clinical Notes Recorded"
--- OUTSIDE RECORDS SUMMARY | 2025-08-22 13:00 | XMS_ITS | Clinical Summary ---
Author Organization [facility] Address [address] [place] [address] Phone Care Team Providers Care Meter/Relay Craftsman Name Role Phone Cecy ELLIS, Ab FABIAN MD, [place] Primary Care Provider [phone] Reason for Visit and Chief Complaint BRACE FITTING Problems Includes: Problems addressed during this encounter and other active Problems All Visits Onset Date Resolved Date Provider Condition S tatus Neck Pain 10/29/2022 Dale Abdullahi MD Active Last Documented On 3 9:10AM ; [facility] Lower Back Pain 06/26/2021 Dale Abdullahi MD Act maximino Last Documented On 1 10:06AM ; [facility] Joint Pain Right Knee 03/14/2021 Javan Stephens MD Active Last Documented On 1 10:21AM ; [facility] Joint Pain Knee 02/03/2018 Ab Sam MD Active Last Documented On 8 9:25AM ; [facility] Plan of Treatment No Plan of Treatment [...] On 4 8:30AM By Betty Cullen ; [facility] Tamsulosin HCl 0.4 MG Oral Capsule 11/08/2023 Provid er: Diagnosis: Last Documented On 4 8:30AM By Betty Cullen ; [facility] Esomeprazole Magnesium 40 MG Oral Capsule Delayed Release 10/25/2023 Provider: AMY FABIAN MD Diagnosis: Last Documented On 4 8:30AM By Betty Cullen ; [facility], [facility] Cyclobenzaprine HCl 5 MG Oral Tablet 10/07/2023 Prov ider: Diagnosis: Last Documented On 4 8:30AM By Betty Cullen ; [facility] Esomeprazole Magnesium 40 MG Oral Capsule Delayed Release 09/28/2023 Provider: AMY FABIAN MD Diagnosis: Last Documented On 4 8:30AM By Betty Cullen ; [facility] Triamcinolone Acetonide 0.1% External Cream 07/05/2023 Provider: Diagnosis: Last Documented On 4 8:30AM By Betty Cullen ; [facility] Triamcinolone Acetonide 0.1% External Cream 07/05/2023 Provider: Diagnosis: Last Documented On 4 8:30AM By Betty Cullen ; [facility] NexIUM 20 MG Oral Capsule Delayed Release 03/14/2021 Provider: Diagnosis: Last Documented On 1 10:29AM By Rita Watt ; [facility] Vitamin D3 250 MCG (09492 UT) Oral Capsule 021 Provider: Diagnosis: Last Documented On 1 10:30AM By Rita Watt ; [facility], [facility] Joe Aspirin 325 MG Oral Tablet 03/14/2021 Provider : Diagnosis: Last Documented On 1 10:29AM By Rita Watt ; [facility] Medications Administered Includes: Administered Medications from this [...] Location Date Check-In Time Check-Out Time Diagnosis BRACE FITTING [facility] 08/17/2024 12:10PM 11:59PM Insurance Includes: Active Insurance Policies Plan Name Member ID Group # Subscriber Relationship Effect maximino Dates 1 - Medicare Part B [facility] [id number] Padmini Alarcon Self 2 - [facility] [id number] Agnes Myrna 10/04/2020 - Unknown Clinical Notes Includes: Clinical Notes from this encounter No Clinical Notes Recorded
--- OUTSIDE RECORDS SUMMARY | 2025-08-22 13:00 | XMS_ITS | Clinical Summary ---
Author Organization [facility] , [facility] Address [address] [place] [address] Phone Care Team Providers Care Radio Frequency Design Engineer Name Role Phone Cecy ELLIS, Ab Lerner Unavailable [phone] CAREN ELLIS, AMY Primary Care Provider [phone] Reason for Visit and Chief Complaint The Chief Complaint is: Right Knee Pain Problems Includes: Problems addressed during this encounter and other active Problems Current Visit Onset Date Resolved Date Provider Conditio n Status Lower Back Pain 06/26/2021 Dale Abdullahi MD Act maximino Last Documented On 1 10:06AM ; [facility] Past Visits Onset Date Resolved Date Provider Condition Status Neck Pain 10/29/2022 Dale Abdullahi MD Active Last Documented On 3 9:10AM ; [facility] [place], [facility] Joint Pain Right Knee 03/14/2021 Javan Stephens MD Active Last Documented On 1 10:21AM ; [facility], [facility] Joint Pain Knee 02/03/2018 Ab Sam MD Active Last Documented On 8 9:25AM ; [facility], [facility] Plan of Treatment NON-SURGICAL PLAN: POWER STEPS TESTS ORDERED: - Last Documented On 08/18/2024 11:16AM ; [facility], [facility] RIGHT KNEE MRI TO R/O MMT CAN CALL FOR RIGHT KNEE CORTISONE INJECTION PRN PAIN IN INJECTION CLINIC SURGICAL PLAN: RIGHT UKA-LATERAL. [facility]ERY [facility] CANDIDATE - Last Documented On 08/18/2024 11:16AM ; [facility], [facility] PCP CLEARANCE FOLLOW UP: POST-OP - Last Documented On 08/18/2024 11:16AM ; [facility] Pending Tests Order Diagnosis Results Due Ordering Cassy carrington Radiology - MRI MRI Knee Pain in right knee 08/31/24 C kristin Stephens MD Last Documented On 4 11:16AM ; [facility], [facility] Assessments Includes: Assessments from this encounter Findings SEVERE RIGHT KNEE LATERAL COMPARTMENT DJD. TAKES OCCASIONAL NSAIDs AND TYLENOL. INJECTION BENEFICIAL. BECOMING INCREASINGLY LIMITED. WANTS TO REMAIN ACTIVE AND ENJOYS DANCING. - Last Documented On 08/18/2024 11:16AM ; [facility] Medical Equipment - Implanted Devices Includes: Current Devices No Medical Equipment Recorded Medications Includes: Medications discussed during this encounter and other current Medications Current Medications (continue as prescribed) oxyBUTYnin Chloride ER 10 MG Oral Tablet Extended Release 24 Hour 11/08/2023 Provider: Diagnosis: Last Documented On 4 8:30AM By Betty Pereira [facility] Tamsulosin HCl 0.4 MG Oral Capsule 11/08/2023 Provid er: Diagnosis: Last Documented On 4 8:30AM By Betty Pereira [facility] Esomeprazole Magnesium 40 MG Oral Capsule Delayed Release 10/25/2023 Provider: AMY FABIAN MD Diagnosis: Last Documented On 4 8:30AM By Betty Cullen ; [facility] Cyclobenzaprine HCl 5 MG Oral Tablet 10/07/2023 Prov ider: Diagnosis: Last Documented On 4 8:30AM By Betty Pereira [facility] Esomeprazole Magnesium 40 MG Oral Capsule Delayed Release 09/28/2023 Provider: AMY FABIAN MD Diagnosis: Last Documented On 4 8:30AM By Betty Pereira [facility] Triamcinolone Acetonide 0.1% External Cream 07/05/2023 Provider: Diagnosis: Last Documented On 4 8:30AM By Betty Pereira [facility] Triamcinolone Acetonide 0.1% External Cream 07/05/2023 Provider: Diagnosis: Last Documented On 4 8:30AM By Betty Cullen ; [facility], [facility] NexIUM 20 MG Oral Capsule Delayed Release 03/14/2021 Provider: Diagnosis: Last Documented On 1 10:29AM By Rita Watt ; [facility], [facility] Vitamin D3 250 MCG (10249 UT) Oral Capsule 021 Provider: Diagnosis: Last Documented On 1 10:30AM By Rita Watt ; [facility], [facility] Joe Aspirin 325 MG Oral Tablet 03/14/2021 Provider : Diagnosis: Last Documented On 1 10:29AM By Rita Watt ; [facility], [facility] Medications Administered Includes: Administered Medications from this encounter No Administered Medications Recorded Vital Signs Includes: Vital Signs from this encounter Vital Name 08/17/2024 10:34A Height (in) 71 Weight (lb) 245 Body Mass Index 34.2 Body Surface Area 2.3 Note: SV Last Documented: On 08/17/2024 10:34A M ; [facility], [facility] Results Includes: Results discussed during this encounter No Results Recorded For Specified Dates History of Present Illness Includes: History of Present Illness from this encounter CRIS Alarcon is a 64 year old male. - Allergy list reviewed - Problem list reviewed - Medication reconciliation performed - Medication list reviewed - Medication list reviewed KEMAL Social History Description Last Updated Tobacco non-user 10/29/2022 Last Documented On 4 10:33AM ; [facility], [facility] No recent change in diet 10/29/2022 Last Documented On 4 10:33AM ; [facility], [facility] Not a current smoker. 10/29/2022 Last Documented On 4 10:33AM ; [facility], [facility] Non-smoker 03/14/2021 Last Documented On 4 10:33AM ; [facility], [facility] Not a current smoker. 03/14/2021 Last Documented On 4 10:33AM ; [facility], [facility] No tobacco use 02/03/2018 Last Documented On 4 10:33AM ; [facility], [facility] Smoking status : Never smoker 02/03/2018 Last Documented On 4 10:33AM ; [facility], [facility] Alcohol use 02/03/2018 Last Documented On 4 10:33AM ; [facility], [facility] Caffeine use 02/03/2018 Last Documented On 4 10:33AM ; [facility], [facility] Exercising regularly 02/03/2018 Last Documented On 4 10:33AM ; [facility], [facility] No recent change in diet 02/03/2018 Last Documented On 4 10:33AM ; [facility], [facility] Not a current smoker 02/03/2018 Last Documented On 4 10:33AM ; [facility], [facility] Not using drugs 02/03/2018 Last Documented On 4 10:33AM ; [facility], [facility] Procedures and Surgical History Includes: Procedures from this encounter Procedures Code Diagnosis Performing Provider Service L ocation Service Date use of tobacco assessment performed 1000F Last Documented On 4 10:34AM ; [facility], [facility] review of medications documented 1160F Last Documented On 4 10:34AM ; [facility], [facility] Medical History Includes: Medical History addressed during this encounter Description Last Updated Heartburn / Acid Reflux 03/14/2021 Last Documented On 4 10:33AM ; [facility], [facility] History of Arthroscopy 03/14/2021 Last Documented On 4 10:33AM ; [facility], [facility] History of Blood Clots 03/14/2021 Last Documented On 4 10:33AM ; [facility], [facility] No recent immunization for pneumococcal pneumonia 03/14/2021 Last Documented On 4 10:33AM ; [facility], [facility] Recent immunization for flu 03/14/2021 Last Documented On 4 10:33AM ; [facility], [facility] vericose vein 02/03/2018 Last Documented On 4 10:33AM ; [facility], [facility] Arthritic joint problems 02/03/2018 Last Documented On 4 10:33AM ; [facility], [facility] Family History Includes: Family History addressed during this encounter Description Last Updated Family history of osteoporosis 1 Last Documented On 4 10:33AM ; [facility] No significant family history 02/03/2018 Last Documented On 4 10:33AM ; [facility] Review of Systems Includes: Review of Systems from this encounter Systemic: Not feeling tired, no recent weight loss, and no recent weight gain. Head: No headache and no sinus pain. Eyes: No vision problems, no Cataracts, no Glasses/Contacts, and no Glaucoma. Otolaryngeal: Hearing loss and tinnitus. Cardiovascular: No chest pain or discomfort, no palpitations, no Hypertension, and no High Cholesterol. Pulmonary: No daytime asthma symptoms and no chronic cough. No wheezing. Gastrointestinal: Heartburn. No abdominal pain. No Indigestion, no Peptic Ulcer, no GI Stomach Bleed, no Ulcers, and no Acid Reflux. Endocrine: No hot flashes, no muscle weakness, no Diabetes, no Hypothyroid, and no Hyperthyroid. Hematologic: No easy bleeding. A tendency for easy bruising. No Anemia. Musculoskeletal: No Arthritis. Lower back pain. No soft tissue swelling. Pain localized to one or more joints. Neurological: No dizziness, no convulsions, and no numbness. Psychological: No anxiety, no emotional lability, no depression, and no insomnia. Not crying for no reason. Skin: No dry skin. No Ulcers, no Scars, and no rash. Allergic and Immunologic: Complaint of seasonal allergic reaction. Mental Status Includes: Mental Status from this encounter Description No anxiety Functional Status Includes: Functional Status from this encounter No Functional Status Recorded Physical Exam Includes: Physical Exam from this encounter Allergies Includes: Active Allergies No Known Allergies Encounters Encounter Provider Location Date Check-In Time Check-Out Time Diagnosis Follow Up Javan Stephens MD [facility] 08/17/20 24 10:33AM 11:53AM Insurance Includes: Active Insurance Policies Plan Name Member ID Group # Subscriber Relationship Effect maximino Dates 1 - Medicare Part [place] of [place] [id number] Padmini Alarcon Self 2 - [facility] [id number] Myrna Alarcon 10/04/2020 - Unknown Clinical Notes Includes: Clinical Notes from this encounter * Progress note Date Encounter Last Documented by 08/17/2024 Follow Up Last documented on 08/18/2024; 11:16 AM, Javan Stephens MD; [facility], [facility] Active Problems & Conditions - Joint Pain in the Right Knee - Joint Pain, Localized in the Knee - Lower Back Pain - Neck Pain Chief Complaint The Chief Complaint is: Right Knee Pain. Referred Here Referred by. History of Present Illness Padmini Alarcon is a 64 year old male. - Allergy list reviewed - Problem list reviewed - Medication reconciliation performed - Medication list reviewed - Medication list reviewed KEMAL Current Medication - Joe Aspirin 325 MG Oral Tablet use as directed 0 days, 0 refills - [facility] Vitamin D3 250 MCG (96503 UT) Oral Capsule use as directed 0 days, 0 refills - Cyclobenzaprine HCl 5 MG Oral Tablet 10 days, 0 refills - Esomeprazole Magnesium 40 MG Oral Capsule Delayed Release 30 days, 0 refills - Esomeprazole Magnesium 40 MG Oral Capsule Delayed Release 30 days, 0 refills - NexIUM 20 MG Oral Capsule Delayed Release use as directed 0 days, 0 refills - oxyBUTYnin Chloride ER 10 MG Oral Tablet Extended Release 24 Hour 30 days, 0 refills - Tamsulosin HCl 0.4 MG Oral Capsule 30 days, 0 refills - Triamcinolone Acetonide 0.1% External Cream 25 days, 0 refills - Triamcinolone Acetonide 0.1% External Cream 25 days, 0 refills Past Medical/Surgical History Reported: Medical: Arthritic joint problems. Immunization History: Recent immunization for flu. No recent immunization for pneumococcal pneumonia. Diagnoses: History of Blood Clots Heartburn / Acid Reflux Vericose vein. Surgical: - History of Arthroscopy Social History Not a current smoker. Not a current smoker. Current diet: No recent change in diet. No recent change in diet. Caffeine use: Caffeine use. Tobacco use: No tobacco use and not a current smoker. Tobacco non-user and non-smoker. Smoking status: Never smoker. Alcohol: Alcohol use. Drug Use: Not using drugs. Habits: Exercising regularly. Allergies - No Known Allergies Family History No significant family history Osteoporosis Review Of Systems Systemic: Not feeling tired, no recent weight loss, and no recent weight gain. Head: No headache and no sinus pain. Eyes: No vision problems, no Cataracts, no Glasses/Contacts, and no Glaucoma. Otolaryngeal: Hearing loss and tinnitus. Cardiovascular: No chest pain or discomfort, no palpitations, no Hypertension, and no High Cholesterol. Pulmonary: No daytime asthma symptoms and no chronic cough. No wheezing. Gastrointestinal: Heartburn. No abdominal pain. No Indigestion, no Peptic Ulcer, no GI Stomach Bleed, no Ulcers, and no Acid Reflux. Endocrine: No hot flashes, no muscle weakness, no Diabetes, no Hypothyroid, and no Hyperthyroid. Hematologic: No easy bleeding. A tendency for easy bruising. No Anemia. Musculoskeletal: No Arthritis. Lower back pain. No soft tissue swelling. Pain localized to one or more joints. Neurological: No dizziness, no convulsions, and no numbness. Psychological: No anxiety, no emotional lability, no depression, and no insomnia. Not crying for no reason. Skin: No dry skin. No Ulcers, no Scars, and no rash. Allergic and Immunologic: Complaint of seasonal allergic reaction. Physical Findings - Vitals taken 08/17/2024 10:34 am SV Height 71 in Weight 245 lbs Body Mass Index 34.2 kg/m2 Body Surface Area 2.3 m2 PATIENT ORIENTED WITH NORMAL APPEARANCE GAIT: NORMAL SLIGHTLY FLAT FEET TA/GAS: 5/5 DP PULSES: PALPABLE RIGHT HIP: ROM: FLEXION: 120 DEGREES IR: 20 DEGREES ER: 20 DEGREES LEFT HIP: ROM: FLEXION: 125 DEGREES IR: 20 DEGREES ER: 30 DEGREES RIGHT KNEE: ROM: 2-130 DEGREES MODERATE PATELLAR MOBILITY WITHOUT PAIN CORRECTABLE VALGUS DEFORMITY SEVERE MEDIAL JOINT LINE TENDERNESS MODERATE LATERAL JOINT LINE TENDERNESS SKIN WNL LEFT KNEE: ROM: WNL SKIN WNL Tests RIGHT KNEE XR (4 VIEWS): BONE ON BONE LATERAL COMPARTMENT RIGHT KNEE VARUS STRESS VIEW XR (1 VIEW): POSSIBLE MEDIAL SPACE NARROWING PELVIS XR (1 VIEW): MINIMAL BILATERAL HIP DJD Assessment SEVERE RIGHT KNEE LATERAL COMPARTMENT DJD. TAKES OCCASIONAL NSAIDs AND TYLENOL. INJECTION BENEFICIAL. BECOMING INCREASINGLY LIMITED. WANTS TO REMAIN ACTIVE AND ENJOYS DANCING. Plan StartCited - Pain in right knee Radiology/MRI: MRI Knee EndCited NON-SURGICAL PLAN: POWER STEPS TESTS ORDERED: RIGHT KNEE MRI TO R/O MMT CAN CALL FOR RIGHT KNEE CORTISONE INJECTION PRN PAIN IN INJECTION CLINIC SURGICAL PLAN: RIGHT UKA-LATERAL. SUR[facility]ENTER CANDIDATE PCP CLEARANCE FOLLOW UP: POST-OP Notes This dictation was done with voice recognition software and may contain errors and omissions. transcribed by Shereen Ronquillo The patient gave verbal consent in the office today to receive our educational STREAMD text messages as they prepare and recover from surgery. They understand that this is an automated program, that their responses are not monitored by our office, and that they should not use the messaging program to communicate with our office directly. For urgent medical advice, they know to either call our office or 911 for emergencies Practice Management Use of tobacco assessment performed Review of medications documented. Care Team - AMY FABIAN MD - ESTATE PLANNING DIRECTOR
--- OUTSIDE RECORDS SUMMARY | 2025-08-22 13:01 | XMS_ITS | Clinical Summary ---
Author Organization [facility] , [facility] Address [address] [place] [address] Phone Care Team Providers Care Remodeler Name Role Phone Cecy ELLIS, Ab Lerner Unavailable [phone] CAREN ELLIS, AMY Primary Care Provider [phone] Reason for Visit and Chief Complaint The Chief Complaint is: Right Knee Pain Problems Includes: Problems addressed during this encounter and other active Problems Current Visit Onset Date Resolved Date Provider Conditio n Status Lower Back Pain 06/26/2021 Dale Abdullahi MD Act maximino Last Documented On 1 10:06AM ; [facility] Past Visits Onset Date Resolved Date Provider Condition Status Neck Pain 10/29/2022 Dale Abdullahi MD Active Last Documented On 3 9:10AM ; [facility] Joint Pain Right Knee 03/14/2021 Javan Stephens MD Active Last Documented On 1 10:21AM ; [facility] Joint Pain Knee 02/03/2018 Ab Sam MD Active Last Documented On 8 9:25AM ; [facility] Plan of Treatment Patient presents today for concerns of increasing right lateral knee pain making it difficult to go up and downstairs, interfering with up and down from chair, walking, standing for prolonged periods of time. Today we discussed he has severe [id number] DJD. Attempted conservative effort with cortisone injection, history of viscosupplementation he is welcome to return if he felt helpful. Unable to take anti-inflammatories due to blood thinner, history of DVT. We will plan for follow-up 3 months for repeat injection if needed The [Right] knee was prepped with 3 betadine swabs and an alcohol swab. 2cc 40mg Kenolog mixed with Marcaine and lidocaine up to 10 mL] were then injected into the knee with good fill, patient tolerated procedure well. Hemostasis was obtained with a band-aid. - Last Documented On 11/26/2023 8:46AM ; [facility], [facility] Instructions to patient Lose weight Last Documented On 4 8:31AM ; [facility], [facility] Assessments Includes: Assessments from this encounter Findings - Overweight - Last Documented On 11/26/2023 8:46AM ; [facility] Severe right knee lateral compartment DJD [id number] - Last Documented On 11/26/2023 8:46AM ; [facility], [facility] Instructions Includes: Instructions from this encounter Instructions to patient Lose weight Last Documented On 4 8:31AM ; [facility] Medical Equipment - Implanted Devices Includes: Current Devices No Medical Equipment Recorded Medications Includes: Medications discussed during this encounter and other current Medications Current Medications (continue as prescribed) oxyBUTYnin Chloride ER 10 MG Oral Tablet Extended Release 24 Hour 11/08/2023 Provider: Diagnosis: Last Documented On 4 8:30AM By Betty MARINO, [facility] Tamsulosin HCl 0.4 MG Oral Capsule 11/08/2023 Provid er: Diagnosis: Last Documented On 4 8:30AM By Betty [facility] Esomeprazole Magnesium 40 MG Oral Capsule Delayed Release 10/25/2023 Provider: AMY FABIAN MD Diagnosis: Last Documented On 4 8:30AM By Betty SCOTT [facility], [facility] Cyclobenzaprine HCl 5 MG Oral Tablet 10/07/2023 Prov ider: Diagnosis: Last Documented On 4 8:30AM By Betty SCOTT [facility], [facility] Esomeprazole Magnesium 40 MG Oral Capsule Delayed Release 09/28/2023 Provider: AMY FABIAN MD Diagnosis: Last Documented On 4 8:30AM By Betty SCOTT [facility], [facility] Triamcinolone Acetonide 0.1% External Cream 07/05/2023 Provider: Diagnosis: Last Documented On 4 8:30AM By Betty Cullen ; [facility], [facility] Triamcinolone Acetonide 0.1% External Cream 07/05/2023 Provider: Diagnosis: Last Documented On 4 8:30AM By Betty Cullen ; [facility], [facility] NexIUM 20 MG Oral Capsule Delayed Release 03/14/2021 Provider: Diagnosis: Last Documented On 1 10:29AM By Rita Watt ; [facility], [facility] Vitamin D3 250 MCG (80011 UT) Oral Capsule 021 Provider: Diagnosis: Last Documented On 1 10:30AM By Rita Watt ; [facility] Joe Aspirin 325 MG Oral Tablet 03/14/2021 Provider : Diagnosis: Last Documented On 1 10:29AM By Rita Watt ; [facility], [facility] Medications Administered Includes: Administered Medications from this encounter No Administered Medications Recorded Vital Signs Includes: Vital Signs from this encounter Vital Name 11/10/2023 08:43A Height (in) 71 Weight (lb) 245 Body Mass Index 34.2 Body Surface Area 2.3 Note: js Last Documented: On 11/10/2023 8:44AM ; [facility] Results Includes: Results discussed during this encounter No Results Recorded For Specified Dates History of Present Illness Includes: History of Present Illness from this encounter CRIS Alarcon is a 63 year old male. - Allergy list reviewed - Problem list reviewed - Medication reconciliation performed - Medication list reviewed - Medication list reviewed KEMAL Social History Description Last Updated Tobacco non-user 10/29/2022 Last Documented On 4 8:31AM ; [facility] No recent change in diet 10/29/2022 Last Documented On 4 8:31AM ; [facility], [facility] Not a current smoker. 10/29/2022 Last Documented On 4 8:31AM ; [facility] Non-smoker 03/14/2021 Last Documented On 4 8:31AM ; [facility] Not a current smoker. 03/14/2021 Last Documented On 4 8:31AM ; [facility], [facility] No tobacco use 02/03/2018 Last Documented On 4 8:31AM ; [facility], [facility] Smoking status : Never smoker 02/03/2018 Last Documented On 4 8:31AM ; [facility], [facility] Alcohol use 02/03/2018 Last Documented On 4 8:31AM ; [facility], [facility] Caffeine use 02/03/2018 Last Documented On 4 8:31AM ; [facility], [facility] Exercising regularly 02/03/2018 Last Documented On 4 8:31AM ; [facility], [facility] No recent change in diet 02/03/2018 Last Documented On 4 8:31AM ; [facility], [facility] Not a current smoker 02/03/2018 Last Documented On 4 8:31AM ; [facility], [facility] Not using drugs 02/03/2018 Last Documented On 4 8:31AM ; [facility], [facility] Procedures and Surgical History Includes: Procedures from this encounter Procedures Code Diagnosis Performing Provider Service L ocation Service Date use of tobacco assessment performed 1000F Last Documented On 4 8:31AM ; [facility], [facility] review of medications documented 1160F Last Documented On 4 8:44AM ; [facility], [facility] Medical History Includes: Medical History addressed during this encounter Description Last Updated Heartburn / Acid Reflux 03/14/2021 Last Documented On 4 8:31AM ; [facility] History of Arthroscopy 03/14/2021 Last Documented On 4 8:31AM ; [facility], [facility] History of Blood Clots 03/14/2021 Last Documented On 4 8:31AM ; [facility], [facility] No recent immunization for pneumococcal pneumonia 03/14/2021 Last Documented On 4 8:31AM ; [facility], [facility] Recent immunization for flu 03/14/2021 Last Documented On 4 8:31AM ; [facility], [facility] vericose vein 02/03/2018 Last Documented On 4 8:31AM ; [facility] Arthritic joint problems 02/03/2018 Last Documented On 4 8:31AM ; [facility] Family History Includes: Family History addressed during this encounter Description Last Updated Family history of osteoporosis 1 Last Documented On 4 8:31AM ; [facility] Review of Systems Includes: Review of Systems [...] Heartburn. No abdominal pain. No Indigestion, no Acid Reflux, no Peptic Ulcer, no GI Stomach Bleed, and no Ulcers. Endocrine: No hot flashes, no muscle weakness, [...] Check-In Time Check-Out Time Diagnosis Follow Up Jorden Camacho PA-C [facility] 4 8:21AM 9:43AM Overweight Insurance Includes: Active Insurance Policies Plan Name Member ID Group # Subscriber Relationship Effect maximino Dates 1 - Medicare Part [place] of [place] [id number] Padmini [place] Self 2 - [id number] Myrna Alarcon 10/04/2020 - Unknown Clinical Notes Includes: Clinical Notes from this encounter * Progress note Date Encounter Last Documented by 11/10/2023 Follow Up Last documented on 11/26/2023; 8:46 AM, Jorden Camacho PA-C; [facility], [facility] Active Problems & Conditions - Joint Pain in the Right Knee - Joint Pain, Localized in the Knee - Lower Back Pain - Neck Pain Chief Complaint The Chief Complaint is: Right Knee Pain. Referred Here Referred by. History of Present Illness Padmini Alarcon is a 63 year old male. - Allergy list reviewed - Problem list reviewed - Medication reconciliation performed - Medication list reviewed - Medication list reviewed KEMAL Current Medication - Joe Aspirin 325 MG Oral Tablet use as directed 0 days, 0 refills - [facility] Vitamin D3 250 MCG (92182 UT) Oral Capsule use as directed 0 [...] Allergies - No Known Allergies Family History Osteoporosis Review Of Systems Systemic: Not feeling [...] Heartburn. No abdominal pain. No Indigestion, no Acid Reflux, no Peptic Ulcer, no GI Stomach Bleed, and no Ulcers. Endocrine: No hot flashes, no muscle weakness, [...] allergic reaction. Physical Findings - Vitals taken 11/10/2023 08:43 am js Height 71 in Weight 245 lbs Body Mass Index 34.2 kg/m2 Body Surface Area 2.3 m2 Patient alert and oriented x3 Moderately overweight primarily abdominal Mild antalgic gait Right hip motion normal without stiffness laxity Right knee exam Skin clean, dry and intact Mild valgus deformity passively correctable Mild knee swelling, minimal effusion Knee Extension 2- Knee Flexion 140- Mild MJT, severe LJT, [No] Pes Tenderness Patellar grind test negative with good patellar mobility Strength [5/5] TA, [5/5] Gastroc, [5/5] Quad Sensation intact to light touch throughout Palpable pulses DP/PT Tests Multiple x-rays right knee taken today demonstrates severe lateral compartment DJD [id number] with mildly broad wear pattern on lateral view, good medial joint space. Good patellar tracking on sunrise view with mild parapatellar osteophyte Assessment - Overweight Severe right knee lateral compartment DJD [id number] Counseling/Education - Lose weight Plan Patient presents today for concerns of increasing right lateral knee pain making it difficult to go up and downstairs, interfering with up and down from chair, walking, standing for prolonged periods of time. Today we discussed he has severe myns-ko-cfrn DJD. Attempted conservative effort with cortisone injection, history of viscosupplementation he is welcome to return if he felt helpful. Unable to take anti-inflammatories due to blood thinner, history of DVT. We will plan for follow-up 3 months for repeat injection if needed The [Right] knee was prepped with 3 betadine swabs and an alcohol swab. 2cc 40mg Kenolog mixed with Marcaine and lidocaine up to 10 mL] were then injected into the knee with good fill, patient tolerated procedure well. Hemostasis was obtained with a band-aid. Notes This dictation was done with voice recognition software and may contain errors and omissions. Practice Management Use of tobacco assessment performed Review of medications documented. Care Team - AMY FABIAN MD - DRILLING MACHINE RUNNER
== END 2025-08-22 23:59 | disposition home or self-care (01) ==
LOC: RAD 11:50
PROVIDERS: PCP Physician Assistant; Visit Provider Physician Assistant
DX: J40 Bronchitis, not specified as acute or chronic (principal)
CPT/HCPCS: 71046; 87070; 87205

== ENCOUNTER 2025-08-28 15:42 | Outpatient (CLI) | payer MEDICARE, BC, SELFPAY ==
--- OUTSIDE RECORDS SUMMARY | 2024-05-03 06:00 | XMS_ITS ---
Author Organization [facility] Address [address] [place] [id number] Care Team Providers Care Die Maker Electronic Name Role Phone Brett Conrad Primary Care Provider [phone] Héctor Garza Unavailable [phone] Allergies No Known Allergies Results Component Value Reference Range Notes Covid test (in house) Reviewed date:05/03/2024 12:07:57 PM Interpretation: Performing Lab: Notes/Report: Result: Pos REASON FOR VISIT congestion Medications Medication SIG (Take, Route, Frequency, Duration) Notes Start Date End Date Status Cyclobenzaprine HCl 5 MG 1 tab(s) orally 3 times a day Active Paxlovid (300/100) 20 x 150 MG & 10 x 100MG 3 tablets Orally Twice a day 05/03/2024 Active Tylenol 8 Hour Arthritis Lida n 650 MG 2 tab(s) orally once daily Active ALPRAZolam 0.25 MG 1/2 tab(s) orally on ce a day as needed 04/23/2023 Active Indomethacin 25 MG 1 capsule with food or milk Orally Three times a day 03/18/2023 Active NexIUM 40 MG 1 cap(s) orally once a day 12/04/2016 Active hydrOXYzine HCl 25 MG 1 tablet as needed Orally every night, prn 05/13/2023 Active Vital Signs Weight 245.8 lbs 05/03/2024 Blood pressure systolic 120 mm Hg 05/03/20 24 Blood pressure diastolic 82 mm Hg 024 Heart Rate 87 /min 05/03/2024 Height 71.50 in 05/03/2024 BMI 33.80 kg/m2 05/03/2024 Encounters Encounter Location Date Provider Diagnosis [facility] [address] [facility] [address] [facility] [address] [place] [id number] 05/03/2024 Héctor Greg COVID-19 U07.1 Assessments Encounter Date Diagnosis (ICD Code) Assessment Notes Treatment Notes Treatment Clinical Notes Section Notes 05/03/2024 COVID-19 (ICD-10 - U07.1) Plan Of Treatment Medication Medication Name Sig Start Date Stop Date Notes Paxlovid (300/100) 20 x 150 MG & 10 x 100MG 3 tablets Orally Twice a day 05/03/2024 Next Appt Details Follow Up: prn, Reason: Provider Name:Piper Ramsey tyson, 08/31/2025 10:45:00 AM, [address] [facility] [address] [facility], [address], [place], [id number], Progress Notes * Noreen ALARCONinDOB:[birth year] (65 yo M)Acc No.[id number]:05/03/2024 Progress Notes Patient: Padmini ROY Provider: Shereen Garza M.D. :1960 A ge:64 Y S ex:Male Date:05/03/2024 Address:[address] [address], [place], [id number] Pcp:Brett Conrad Subjective: * Chief Complaints: * 1 . Congestion. * HPI: E NT/respiratory: 64 year old male presents with c/o nasal congestion P t complains of nasal congestion that started last night. Associated with headache, bodyaches and chills. Pt states his was dx with Covid over the weekend. D ermatology: c/o rash P t complains of rash around genital area for about 2 weeks. States he has been putting Benadryl Itch relief but has not had any improvement. * ROS: D ERMATOLOGY: no R alexandra. n o H jose. G ASTROENTEROLOGY: no N ausea. n o V omiting. U ROLOGY: no D ifficulty urinating. n o B lood in urine. * Medical History: H iatal Hernia, Stricture Tx 1992, GERD, Varicose Veins, Anxiety , Elbow Tendinitis, RT Thigh SVT, 04/2019. * Surgical History: T onsillectomy 2001, Colonoscopy, Dr. Dsouza 2007, Anal Fistulectomy - Dr. Grace 11/17/2013, Varicose Veins , RT Knee Arthroscopy for Meniscal Tear 02/2018. * Hospitalization/Major Diagno stic Procedure: P rostatis, UTI- [facility], [place], [place] 10/09/2017, RT Leg Thrombophlebitis- [facility] [place] 04/19/2019. * Family History: F ather: alive, high blood pressure. M other: alive. S iblings: sister, breast cancer.?3 brother(s) , 1 sister(s) . 3 son(s) . . * Social History: C URRENT TOBACCO USE S moking Status: Patient does NOT smoke. C affeine: yes, frequency:tea, coffee, pop. Past smoking status: yes, PPD: , years: ,determination:he used to dip, has quit now. Alcohol: Yes, Type: , Frequency: ,Years: , Determination:, occasional, beer. * Medications: T aking Tylenol 8 Hour Arthritis Pain 650 MG Tablet Extended Release 2 tab(s) orally once daily , Taking Indomethacin 25 MG Capsule 1 capsule with food or milk Orally Three times a day , Taking ALPRAZolam 0.25 MG Tablet 1/2 tab(s) orally once a day as needed , Taking hydrOXYzine HCl 25 MG Tablet 1 tablet as needed Orally every night, prn , Taking NexIUM 40 MG Capsule Delayed Release 1 cap(s) orally once a day , Taking Cyclobenzaprine HCl 5 MG Tablet 1 tab(s) orally 3 times a day , Discontinued Cefdinir 300 MG Capsule as directed Orally Two times a day , Discontinued Paxlovid (150/100) 10 x 150 MG & 10 x 100MG Tablet Therapy Pack as directed , Medication List reviewed and reconciled with the patient * Allergies: N .K.D.A. Objective: * Vitals: W t:245.8, Temp:98.0, BP:120/82, HR:87, Nurse:annamaria, Ht: 71.50, BMI:33.80. * Examination: E NT/Respiratory: General Appearance: N AD. H eart : R RR, normal S1 S2. L ungs: c lear to auscultation bilaterally. Assessment: * Assessment: 1. C OVID-19 - U07.1 (Primary) Plan: * Treatment: Value Reference Range R esult: Pos * Mere Lee 05/03/2024 11:03:2 9 AM > , Provider reviewed results while patient in office. * Procedure Codes: G 2211 Complex e/[place], [address] COVID TEST IN HOUSE, Modifiers: QW * Follow Up: p rn * Images: Billing Information: * Visit Code: 53785 Office Visit, Est Pt., Level 3. * Procedure Codes: G2211 Complex e/[place]. [address] COVID TEST IN HOUSE. Modifiers: QW * Electronic signature of Saadia Garza MD on 08/28/2025 at 03:45 PM EST Sign off status: Pending * Provider: Shereen Garza M.D. Date: 0 05/03/2024 Generated for Dudley solis/Shirin/eTransmitting on: 10/28/2024 03:45 PM EST History and Physical Notes * HPI (History of Present Illness) Category Sub-Category Detail Notes Category Not es ENT/respiratory nasal congestion Pt complains of nasal congestion that started last night. Associated with headache, bodyaches and chills. Pt states his was dx with Covid over the weekend Dermatology rash Pt complains of rash around genital area for about 2 weeks. States he has been putting Benadryl Itch relief but has not had any improvement Examination Category Sub-Category Detail Notes Category Not es ENT/Respiratory Heart : RRR, normal S1 S2 Lungs: clear to auscultatio n bilaterally General Appearance: NAD
--- OUTSIDE RECORDS SUMMARY | 2024-09-28 06:15 | XMS_ITS ---
Author Organization [facility] Address [address] [place] [id number] Care Team Providers Care E Commerce Architect Name Role Phone Brett Conrad Primary Care Provider [phone] Allergies No Known Allergies Results Component Value Reference Range Notes Influenza Screen (in house) Reviewed date:09/28/2024 11:03:21 AM Interpretation:neg Performing Lab: Notes/Report: neg results neg Covid test (in house) Reviewed date:09/28/2024 11:03:09 AM Interpretation:neg Performing Lab: Notes/Report: neg Result: neg REASON FOR VISIT congestion ,cough Medications Medication SIG (Take, Route, Frequency, Duration) Notes Start Date End Date Status Cefuroxime Axetil 500 MG 1 tablet Orally every 12 hrs 09/28/2024 Active ALPRAZolam 0.25 MG 1/2 tab(s) orally on ce a day as needed 04/23/2023 Active Indomethacin 25 MG 1 capsule with food or milk Orally Three times a day 03/18/2023 Active NexIUM 40 MG 1 cap(s) orally once a day 12/04/2016 Active Tylenol 8 Hour Arthritis Lida n 650 MG 2 tab(s) orally once daily Active Cyclobenzaprine HCl 5 MG 1 tab(s) orally 3 times a day Active Vital Signs Weight 253.2 lbs 09/28/2024 Blood pressure systolic 120 mm Hg 09/28/20 24 Blood pressure diastolic 78 mm Hg 024 Heart Rate 78 /min 09/28/2024 Height 71.50 in 09/28/2024 BMI 34.82 kg/m2 09/28/2024 Encounters Encounter Location Date Provider Diagnosis [facility] [address] [facility] [address] [facility] [address] [place] [id number] 09/28/2024 Brett Conrad Acute sinusitis J01.90 and Infected sebaceous cyst of skin L72.3 Assessments Encounter Date Diagnosis (ICD Code) Assessment Notes Treatment Notes Treatment Clinical Notes Section Notes 09/28/2024 Acute sinusitis (ICD-10 - J01.90) 09/28/2024 Infected sebaceous cyst of skin (ICD-10 - L72.3) Warm compresses Plan Of Treatment Medication Medication Name Sig Start Date Stop Date Notes Cefuroxime Axetil 500 MG 1 tablet Orally every 12 hrs 09/04 Treatment Notes Assessment Notes Infected sebaceous cyst of skin Warm com presses Next Appt Details Follow Up: prn, Reason: Provider Name:Piper tyson, 08/31/2025 10:45:00 AM, [address] [facility] 36 [facility], [address], [place], [id number], Progress Notes * Noreen ALARCONinDOB:[birth year] (65 yo M)Acc No.[id number]:09/28/2024 Progress Notes Patient: Padmini ROY Provider: Brett Conrad M.D. :1960 A ge:64 Y S ex:Male Date:09/28/2024 Address:[address] [address], [facility], [id number] Subjective: * Chief Complaints: * 1 . Congestion ,cough. * HPI: E NT/respiratory: 64 year old male presents with c/o cough. c/o nasal congestion. c/o Fever. c/o headache. Denies : sore throat. D enies : ear pain. D enies : body aches. D ermatology: c/o knot W bhavana sts he has a big knot on his left upper thigh. sts she opened it last night with a sterilized needle and sts clear liquid came out and sts he did not have any pain until she squeezed on it. * ROS: D ERMATOLOGY: no R alexandra. [...] Hospitalization/Major Diagno stic Procedure: P rostatis, UTI- [facility], [place], [place] 10/09/2017, RT Leg Thrombophlebitis- [facility] [place] 04/19/2019. * Family History: F ather: alive, [...] once a day as needed , Taking NexIUM 40 MG Capsule Delayed Release 1 cap(s) orally once a day , Taking Cyclobenzaprine HCl 5 MG Tablet 1 tab(s) orally 3 times a day , Medication List reviewed and reconciled with the patient * Allergies: N .K.D.A. Objective: * Vitals: W t:253.2, Temp:98.5, BP:120/78, HR:78, Nurse:RUBI, Ht: 71.50, BMI:34.82. * Examination: E NT/Respiratory: General Appearance: N AD. E yes: P ERRLA, sclera clear. E ars: a uditory canals normal bilaterally, TM's WNL. N ose : mild congestion. S inuses : frontal sinuses mildly t chantal. O ral cavity : n o erythema or exudate seen on pharynx. N kaila : n o cervical lymphadenopathy. H eart : R RR, normal S1 S2, no murmurs. L ungs: c lear to auscultation bilaterally. S kin : O n the left proximal medial thigh there is a 1 cm sebaceous cyst that is mildly tender. No fluctuance or drainage.. Assessment: * Assessment: 1. A cute sinusitis - J01.90 (Primary) 2 . I nfected sebaceous cyst of skin - L72.3 Plan: * Treatment: Value Reference Range r esults neg * Evonne Sanchez 09/28/2024 10:5 1:03 AM > Provider reviewed results while patient in office. ?LAB: Covid test (in house) (Collection Date & Time - 09/28/2024)?neg* Value Reference Range R esult: neg * Evonne Sanchez 09/28/2024 10:5 1:23 AM > Provider reviewed results while patient in office. 2.?Infected sebaceous cyst of skin? Notes: Warm compresses?? * Procedure Codes: 8 7804 Flu Test- Nasal Swab, Modifiers: QW , 16610 COVID TEST IN HOUSE, Modifiers: QW , G2211 Complex e/m visit add on * Follow Up: p rn * Images: Billing Information: * Visit Code: 13500 Office Visit, Est Pt., Level 4. * Procedure Codes: 42027 Flu Test- Nasal Swab. Modifiers: QW 04479 COVID TEST IN HOUSE. Modifiers: QW G2211 Complex e/m visit add on. * Electronic signature of Brett Conrad MD on 08/28/2025 at 03:45 PM EST Sign off status: Pending * Provider: Brett Conrad M.D. Date: 11/29/2023 Generated for Dudley solis/Shirin/Leola on: 10/28/2024 03:45 PM EST History and Physical Notes * HPI (History of Present Illness) Category Sub-Category Detail Notes Category Not es ENT/respiratory sore throat ear pain cough Fever headache nasal congestion body aches Dermatology knot sts he has a big knot on his left upper thigh. sts she opened it last night with a sterilized needle and sts clear liquid came out and sts he did not have any pain until she squeezed on it Examination Category Sub-Category Detail Notes Category Not es ENT/Respiratory Oral cavity : no erythema or exudate s een on pharynx Sinuses : frontal sinuses mild ly tender Ears: auditory canals norm al bilaterally, TM's WNL Neck : no cervical lymphade nopathy Heart : RRR, normal S1 S2, n o murmurs Lungs: clear to auscultatio n bilaterally General Appearance: NAD Nose : mild congestion Skin : On the left proximal medial thigh there is a 1 cm sebaceous cyst that is mildly tender. No fluctuance or drainage. Eyes: PERRLA, sclera clear
--- OUTSIDE RECORDS SUMMARY | 2025-03-27 04:00 | XMS_ITS ---
Author Organization [facility] Address [address] [place] [phone] Care Team Providers Care Forging Engineer Name Role Phone Brett Conrad Primary Care Provider Héctor Garza Unavailable [phone] Allergies No Known Allergies Results Component Value Reference Range Notes CBC Venipuncture (in house) Reviewed date:03/28/2025 10:57:52 AM Interpretation:Normal Performing Lab: Notes/Report: Normal wbc 8.8 3.5 - 10 lymph 23.2% 15 - 50 mid 5.6% 2 - 15 gran 71.2% 35 - 80 rbc 5.28 3.5 - 5.5 hgb 16.5 11.5 - 16.5 hct 49.7 35 - 55 mcv 94.2 75 - 100 mch 31.4 25 - 35 mchc 33.3 31 - 38 platlet 209 100 - 400 P-Comprehensive Metabolic Pa joel (CMP) Reviewed date:03/28/2025 10:57:52 AM Interpretation:Normal Performing Lab: Notes/Report: CLIA: [id number] Smooth Decker MD, Networking Administrator [address] [facility] , [address], [place] [address] Test performed by [employer], [employer] Sodium 137 135-145 mmol/L Potassium 4.6 3.5-5.3 mmol/L Chloride 101 97-108 mmol/L CO2 28 20-32 mmol/L Glucose 94 65-99 mg/dL BUN 16 8-23 mg/dL Creatinine 0.81 0.70-1.30 mg/dL Calcium 9.6 8.6-10.4 mg/dL eGFR by Creatinine 98 >59 mL/min/1.73m2 Protein 7.7 6.0-8.3 g/dL Albumin 4.6 3.5-5.3 g/dL Alkaline Phosphatase 54 40-129 IU/L ALT (SGPT) 24 <5-55 IU/L AST (SGOT) 18 <5-46 IU/L Bilirubin, Total 0.7 <0.2-1.2 mg/dL A/G Ratio 1.5 1.1-2.5 P-Lipid Panel Reviewed date:03/28/2025 10:57:52 AM Interpretation:Normal Performing Lab: Notes/Report: Test performed by [employer], [address] , [address], [place] [address] Smooth Decker MD, Networking Administrator CLIA: [id number] Cholesterol 150 <200 mg/dL Triglycerides 76 <150 mg/dL HDL Cholesterol 43 >39 mg/dL Cholesterol / HDL Ratio 3.49 0.00-4.99 Ratio Non-HDL Cholesterol 107 <130 mg/dL LDL Cholesterol (Calculation) 92 <130 mg/dL LDL Cholesterol Levels* Less than 100 mg/dL Optimal 100 to 129 mg/dL Near Optimal/ Above Optimal 130 to 159 mg/dL Borderline High 160 to 189 mg/dL High 190 mg/dL and above Very High * Categories as recommended by the 2004 ATPIII guidelines LDL/HDL Ratio 2.1 <3.3 Ratio LDL Cholesterol Patient History Test Date: 03/27/2025 LDL Results: 92 Units: mg/dL % Change: - P-PSA Reviewed date:03/28/2025 10:57:52 AM Interpretation:Normal Performing Lab: Notes/Report: Test performed by [employer] [address] , [address], [place] [address] Smooth Decker MD, Networking Administrator CLIA: [id number] PSA 2.40 <4.00 ng/mL Please note this is an ultrasensitive PSA assay with a lower limit of detection of 0.014 ng/mL. This test is performed by the [employer] ECLIA methodology. Values obtained with different assay methods or kits cannot be directly compared. P-TSH reflex to FT4 Reviewed date:03/28/2025 10:57:52 AM Interpretation:Normal Performing Lab: Notes/Report: Test performed by [employer] [address] , [address], [place] [address] Smooth Decker MD, Networking Administrator CLIA: [id number] TSH reflex to FT4 1.08 0.43-5.25 mU/L REASON FOR VISIT med checkup with labs to include PSA Medications Medication SIG (Take, Route, Frequency, Duration) Notes Start Date End Date Status Tylenol 8 Hour Arthritis Lida n 650 MG 2 tab(s) orally once daily Active DULoxetine HCl 30 MG 1 capsule Orally On ce a day; Duration: 90 days 03/27/2025 Active Cyclobenzaprine HCl 5 MG 1 tab(s) orally 3 times a day Active Esomeprazole Magnesium 40 MG TAKE 1 CAPS ULE BY MOUTH DAILY Active Problems Problem Type SNOMED Code ICD Code Onset Dates Problem Status W/U Status Risk Notes Problem Gastroesophageal reflux disease (689318705) Gastroesophageal reflux disease, unspecified whether esophagitis present (K21.9) Active confirmed Problem Hyperlipidaemia (40200488) Hyperlipidemia, unspecified hyperlipidemia type (E78.5) Active confirmed Problem Obese class I (831897639241038) BMI 33.0-33.9,adult (Z68.33) Active confirmed Vital Signs Weight 246 lbs 03/27/2025 Blood pressure systolic 124 mm Hg 03/27/20 25 Blood pressure diastolic 72 mm Hg 025 Heart Rate 67 /min 03/27/2025 Height 71.50 in 03/27/2025 BMI 33.83 kg/m2 03/27/2025 Encounters Encounter Location Date Provider Diagnosis [facility] [address] [facility] [address] [place] [phone] 03/27/2025 Héctor Garza Gastroesophageal ref lux disease, unspecified whether esophagitis present K21.9 ; Anxiety F41.9 ; Hyperlipidemia, unspecified hyperlipidemia type E78.5 ; Prostate cancer screening Z12.5 ; terminal operations manager use of drug Z79.899 and BMI 33.0-33.9,adult Z68.33 Assessments Encounter Date Diagnosis (ICD Code) Assessment Notes Treatment Notes Treatment Clinical Notes Section Notes 03/27/2025 Gastroesophageal reflux disease, unspecified whether esophagitis present (ICD-10 - K21.9) 03/27/2025 Anxiety (ICD-10 - F41.9) 03/27/2025 Hyperlipidemia, unspecified hyperlipidemia type (ICD-10 - E78.5) 03/27/2025 Prostate cancer screening (ICD-10 - Z12.5) 03/27/2025 longterm use of drug (ICD-10 - Z79.899) 03/27/2025 BMI 33.0-33.9,adult (ICD-10 - Z68.33) Plan Of Treatment Medication Medication Name Sig Start Date Stop Date Notes DULoxetine HCl 30 MG 1 capsule Orally On ce a day; Duration: 90 days 03/27/2025 Esomeprazole Magnesium 40 MG TAKE 1 CAPSULE BY MOUTH DAILY Next Appt Details Follow Up: 2 Months, Reason: Provider Name:Piper tyson, 08/31/2025 10:45:00 AM, [address] [facility], [address], [place], [phone], Progress Notes * Noreen ALARCONinDOB:[birth year] (65 yo M)Acc No.[id number]:03/27/2025 Progress Notes Patient: Jenn KOKONoreenin Provider: Shereen Garza M.D. :1960 A ge:65 Y S ex:Male Date:03/27/2025 Address:[address], [place], [id number] Pcp:Brett Conrad Subjective: * Chief Complaints: * 1 . med checkup with labs to include PSA. * HPI: C ardiology: 65 year old male presents with c/o Hyperlipidemia P t here to f/u. Pt states he is doing well and does not have any concerns. P t is fasting today. * ROS: D ERMATOLOGY: no R alexandra. n o H jose. G ASTROENTEROLOGY: no N ausea. n o V omiting. n o D iarrhea.? U ROLOGY: no D ifficulty urinating. n o B lood in urine. * Medical History: H iatal Hernia, Stricture Tx 1992, GERD, Varicose Veins, Anxiety , Elbow Tendinitis, RT Thigh SVT, 04/2019, Colon polyps. * Surgical History: T onsillectomy 2001, Colonoscopy, 2007, 2021 , Anal Fistulectomy - Dr. Grace 11/17/2013, Varicose Veins , RT Knee Arthroscopy for Meniscal Tear 02/2018. * Hospitalization/Major Diagno stic Procedure: P rostatis, UTI- [place], [place] 10/09/2017, RT Leg Thrombophlebitis- [facility] [place] 04/19/2019. * Family History: F ather: alive, [...] 2 tab(s) orally once daily , Taking Cyclobenzaprine HCl 5 MG Tablet 1 tab(s) orally 3 times a day , Taking Esomeprazole Magnesium 40 MG Capsule Delayed Release TAKE 1 CAPSULE BY MOUTH DAILY , Discontinued Indomethacin 25 MG Capsule 1 capsule with food or milk Orally Three times a day , Discontinued ALPRAZolam 0.25 MG Tablet 1/2 tab(s) orally once a day as needed , Discontinued Cefuroxime Axetil 500 MG Tablet 1 tablet Orally every 12 hrs , Medication List reviewed and reconciled with the patient * Allergies: N .K.D.A. Objective: * Vitals: W t: 246, Temp: 97.8, BP: 124/72, HR: 67, Nurse: елена/nanamaria, Ht: 71.50, BMI:33.83. * Examination: P sychology: General Appearance: N AD. G rooming : a dequate.?Eye contact : n ormal. M ood : renee letatiana. G eneral Examination: Heart: R SR. L ungs: c lear to auscultation. E xtremities: n o leg edema. Assessment: * Assessment: 1. G astroesophageal reflux disease, unspecified whether esophagitis present - K21.9 (Primary)? 2. A nxiety - F41.9 3 . H yperlipidemia, unspecified hyperlipidemia type - E78.5 4 . P rostate cancer screening - Z12.5 5 . longterm use of drug - Z79.899 6 . B SC 33.0-33.9,adult - Z68.33 ? Plan: * Treatment: 2. A nxiety Start DULoxetine HCl Capsule Delayed Release Particles, 30 MG, 1 capsule, Orally, Once a day, 90 days, 90 Capsule, Refills 0. 3. H yperlipidemia, unspecified hyperlipidemia type L AB: P-Comprehensive Metabolic Panel (CMP) (Collection Date & Time - 03/27/2025 08:37 AM) N ormal Value Reference Range A /G Ratio 1.5 1.1-2.5 - * A lbumin 4.6 3.5-5.3 - g/dL * A lkaline Phosphatase 54 40-129 - IU/L * A LT (SGPT) 24 <5-55 - IU/L * A ST (SGOT) 18 <5-46 - IU/L * B ilirubin, Total 0.7 <0.2-1.2 - mg/dL * B UN 16 8-23 - mg/dL * C alcium 9.6 8.6-10.4 - mg/dL * C hloride 101 97-108 - mmol/L * C O2 28 20-32 - mmol/L * C reatinine 0.81 0.70-1.30 - mg/dL * G lucose 94 65-99 - mg/dL * P otassium 4.6 3.5-5.3 - mmol/L * S odium 137 135-145 - mmol/L * P rotein 7.7 6.0-8.3 - g/dL * e GFR by Creatinine 98 >59 - mL/min/1.73m2 * Mere Lee 03/28/2025 10:52: 19 AM EDT > LM for pt to return call [facility] 03/28/2025 10:57:34 AM EDT > pt informed, picking up a copy of results ?LAB: P-Lipid Panel (Collection Date & Time - 03/27/2025 08:37 AM)?Normal* Value Reference Range C holesterol / HDL Ratio 3.49 0.00-4.99 - Ratio * C holesterol 150 <200 - mg/dL * H DL Cholesterol 43 >39 - mg/dL * L DL Cholesterol (Calculation) 92 <130 - mg/d L * L DL/HDL Ratio 2.1 <3.3 - Ratio * N on-HDL Cholesterol 107 <130 - mg/dL * T riglycerides 76 <150 - mg/dL * Mere Lee 03/28/2025 10:52: 19 AM EDT > LM for pt to return call [facility] 03/28/2025 10:57:34 AM EDT > pt informed, picking up a copy of results ?LAB: P-TSH reflex to FT4 (Collection Date & Time - 03/27/2025 08:37 AM)? Normal* Value Reference Range T SH reflex to FT4 1.08 0.43-5.25 - mU/L * Mere Lee 03/28/2025 10:52: 19 AM EDT > LM for pt to return call [facility] 03/28/2025 10:57:34 AM EDT > pt informed, picking up a copy of results 4.?Prostate cancer screening?LAB: P-PSA (Collection Date & Time - 03/27/2025 08:37 AM)?Normal* Value Reference Range P SA 2.40 <4.00 - ng/mL * Mere Lee 03/28/2025 10:52: 19 AM EDT > LM for pt to return call [facility] 03/28/2025 10:57:34 AM EDT > pt informed, picking up a copy of results 5.?longterm use of drug?LAB: CBC Venipuncture (in house) (Collection Date & Time - 03/27/2025)? Normal* Value Reference Range w bc 8.8 3.5 - 10 * l ymph 23.2% 15 - 50 * m id 5.6% 2 - 15 * g ran 71.2% 35 - 80 * r bc 5.28 3.5 - 5.5 * h gb 16.5 11.5 - 16.5 * h ct 49.7 35 - 55 * m cv 94.2 75 - 100 * m ch 31.4 25 - 35 * m chc 33.3 31 - 38 * p latlet 209 100 - 400 * Corrie Echeverria 03/27/2025 12 :25:28 PM EDT > Mere Lee 03/28/2025 10:52:19 AM EDT > LM for pt to return call [facility] 03/28/2025 10:57:34 AM EDT > pt informed, picking up a copy of results * Procedure Codes: G 2211 Complex e/[place], [address] CBC WITH AUTO DIFF, 1036F TOBACCO NON-USER, G8783 BP SCR PRFRM RCMDD DEFIND SCR INTVL, G8752 MOST RECENT SYSTOLIC BP < 140MM HG, G8754 MOST RECENT DIASTOLIC BP < 90MM HG, 3017F COLORECTAL CA SCREEN DOC REV * Preventive Medicine: Screening / Special Tests: C olonoscopy , Dr. Reid,, polyps, diverticulosis, hemorrhoids, repeat 7-10 years. * Follow Up: 2 Months * Images: Billing Information: * Visit Code: 20341 Office Visit, Est Pt., Level 4. * Procedure Codes: G2211 Complex e/[place]. [address] CBC WITH AUTO DIFF. 1036F TOBACCO NON-USER. G8783 BP SCR PRFRM RCMDD DEFIND SCR INTVL. G8752 MOST RECENT SYSTOLIC BP < 140MM HG. G8754 MOST RECENT DIASTOLIC BP < 90MM HG. 3017F COLORECTAL CA SCREEN DOC REV. * Electronic signature of Saadia Garza MD on 08/28/2025 at 03:44 PM EST Sign off status: Pending * Provider: Shereen Garza M.D. Date: 0 03/27/2025 Generated for Dudley soils/Shirin/Igorsmitting on: 10/28/2024 03:44 PM EST History and Physical Notes * HPI (History of Present Illness) Category Sub-Category Detail Notes Category Not es Cardiology Hyperlipidemia Pt here to f/u. Pt states he is doing well and does not have any concerns. Pt is fasting today Examination Category Sub-Category Detail Notes Category Not es General Examination Heart: RSR Lungs: clear to auscultatio n Extremities: no leg edema Psychology General Appearance: NAD Grooming : adequate Eye contact : normal Mood : pleasant
--- OUTSIDE RECORDS SUMMARY | 2025-05-23 06:30 | XMS_ITS ---
Author Organization [facility] Address [address] [facility] [address] [facility] [address] [place] [id number] Care Team Providers Care Plugging Machine Operator Name Role Phone Brett Conrad Primary Care Provider [phone] Piper Mg Unavailable [phone] Allergies No Known Allergies Results Component Value Reference Range Notes X ray : Spine, cervical A-P and Lateral Reviewed date:05/25/2025 05:37:15 PM Interpretation:Negative Performing Lab: Notes/Report: Negative REASON FOR VISIT neck pain Medications Medication SIG (Take, Route, Frequency, Duration) Notes Start Date End Date Status Tylenol 8 Hour Arthritis Lida n 650 MG 2 tab(s) orally once daily Active Cyclobenzaprine HCl 5 MG 1 tab(s) orally 3 times a day, prn Active Esomeprazole Magnesium 40 MG TAKE 1 CAPS ULE BY MOUTH DAILY Active Problems Problem Type SNOMED Code ICD Code Onset Dates Problem Status W/U Status Risk Notes Problem Neck pain (97397210) Neck pain (M54.2) Active confirmed Vital Signs Weight 249.2 lbs 05/23/2025 Blood pressure systolic 118 mm Hg 05/23/20 25 Blood pressure diastolic 72 mm Hg 025 Heart Rate 72 /min 05/23/2025 Height 71.50 in 05/23/2025 BMI 34.27 kg/m2 05/23/2025 Encounters Encounter Location Date Provider Diagnosis [facility] [address] [facility] [address] [place] [phone] 05/23/2025 Piper Mg Neck pain M54.2 and Muscle spasm M62.838 Assessments Encounter Date Diagnosis (ICD Code) Assessment Notes Treatment Notes Treatment Clinical Notes Section Notes 05/23/2025 Neck pain (ICD-10 - M54.2) 05/23/2025 Muscle spasm (ICD-10 - M62.838) Plan Of Treatment Medication Medication Name Sig Start Date Stop Date Notes Cyclobenzaprine HCl 5 MG 1 tab(s) orally 3 times a day, prn Next Appt Details Follow Up: via phone to repo rt test results, Reason: Provider Name:Piper Ritter y, 08/31/2025 10:45:00 AM, [address] [facility] [address], [address], [place], [place], [phone], Progress Notes * Noreen ALARCONinDOB:[birth year] (65 yo M)Acc No.[id number]:05/23/2025 Progress Notes Patient: Padmini ROY Provider: CAREY Lei :1960 A ge:65 Y S ex:Male Date:05/23/2025 Address:[address] [facility] [address], [facility], [id number] Pcp:Brett Conrad Subjective: * Chief Complaints: * 1 . Neck pain. * HPI: N kaila: 65 year old male presents with c/o pain P t states that he's having neck pain and its getting worse. Pt states he wants a X-ray. * ROS: D ERMATOLOGY: no R alexandra. [...] Diagno stic Procedure: P rostatis, UTI- [facility], [place], [place] 10/09/2017, RT Leg Thrombophlebitis- [facility] [place]19/[place]. * Family History: F ather: alive, [...] 1 CAPSULE BY MOUTH DAILY , Discontinued DULoxetine HCl 30 MG Capsule Delayed Release Particles 1 capsule Orally Once a day , Medication List reviewed and reconciled with the patient * Allergies: N .K.D.A. Objective: * Vitals: W t: 249.2, Temp: 97.6, BP: 118/72, HR: 72, Nurse: елена, Ht: 71.50, BMI:34.27. * Examination: G eneral Examination: General Appearance: N AD. N kaila: t tp along the upper C-spine and left paraspinal muscles, ttp along the left trapezius, pain with flexion and extension of neck. C hest: n ormal shape and expansion. H eart: R SR. L ungs: c lear to auscultation. Assessment: * Assessment: 1. N kaila pain - M54.2 (Primary) 2 . M uscle spasm - M62.838 ? Plan: * Treatment: 2.?Muscle spasm? Refill Cyclobenzaprine HCl Tablet, 5 MG, 1 tab(s), orally, 3 times a day, prn, 30, Refills 3.? * Procedure Codes: G 2211 Complex e/m visit add on * Follow Up: v ia phone to report test results * Images: Billing Information: * Visit Code: 90626 Office Visit, Est Pt., Level 3. * Procedure Codes: G2211 Complex e/m visit add on. * Electronic signature of CAREY Powell on 08/28/2025 at 03:45 PM EST Sign off status: Pending * Provider: CAREY Lei Date: 0 05/23/2025 Generated for Printi ng/Falexyg/eTransmitting on: 1 10/28/2024 03:45 PM EST History and Physical Notes * HPI (History of Present Illness) Category Sub-Category Detail Notes Category Not es Neck pain Pt states that h e's having neck pain and its getting worse. Pt states he wants a X-ray Examination Category Sub-Category Detail Notes Category Not es General Examination Heart: RSR Lungs: clear to auscultatio n General Appearance: NAD Neck: ttp along the upper C-spine and left paraspinal muscles, ttp along the left trapezius, pain with flexion and extension of neck Chest: normal shape and exp ansion
--- OUTSIDE RECORDS SUMMARY | 2025-08-22 05:45 | XMS_ITS ---
Author Organization [facility] Address [address] [place] [id number] Care Team Providers Care Desktop Administrator Name Role Phone Brett Conrad Primary Care Provider [phone] Piper Mg Unavailable [phone] Allergies No Known Allergies Results Component Value Reference Range Notes CBC Fingerstick (in house) Reviewed date:08/22/2025 02:08:54 PM Interpretation: Performing Lab: Notes/Report: wbc 10.3 3.5 - 10 lym 21.2 15 - 50 mid 5.7 2 - 15 gran 73.1 35 - 80 rbc 5.47 3.5 - 5.5 hgb 17.2 11.5 - 16.5 hct 51.4 35 - 55 mcv 93.9 75 - 100 mch 31.5 25 - 35 mchc 33.5 31 - 38 plat 156 100 - 400 H-Sputum Culture with Gram S devan Reviewed date:08/24/2025 08:29:00 AM Interpretation: Performing Lab: Notes/Report: GS Gram Stain: GS >25 White Blood Cells /LPF GS <10 Epithelial Cells / LPF GS Rare Gram Positive Diplococci GS Few Gram Positive Co cci in Chains GS Rare Gram Positive C occi in Clusters CUSPU ORGANISM 1: Normal U pper Respiratory Donna CUSPU {Normal Upper Respir atory Donna} TEN-Upper Respiratory PCR Reviewed date:08/24/2025 08:29:00 AM Interpretation:Abnormal Performing Lab: Notes/Report: Abnormal CXR Reviewed date:08/23/2025 04:48:02 PM Interpretation:Negative Performing Lab: Notes/Report: Negative REASON FOR VISIT still not feeling well Medications Medication SIG (Take, Route, Frequency, Duration) Notes Start Date End Date Status Cyclobenzaprine HCl 5 MG 1 tab(s) orally 3 times a day, prn Active Albuterol Sulfate (2.5 MG/3ML) 0.083% 3 mL as needed Inhalation every 6 hrs, prn 08/22/2025 Active Tylenol 8 Hour Arthritis Lida n 650 MG 2 tab(s) orally once daily Active Benzonatate 200 MG 1 capsule as needed Orally Three times a day, prn 08/22/2025 Active Esomeprazole Magnesium 40 MG TAKE 1 CAPS ULE BY MOUTH DAILY Active Nebulizer Mask Adult - as directed 08/22/2025 Active Vital Signs Weight 252 lbs 08/22/2025 Blood pressure systolic 120 mm Hg 08/22/20 25 Blood pressure diastolic 70 mm Hg 025 Heart Rate 75 /min 08/22/2025 Height 71.50 in 08/22/2025 BMI 34.65 kg/m2 08/22/2025 Encounters Encounter Location Date Provider Diagnosis A[facility] [address] [facility] [address] [place], [place] [id number] 08/22/2025 Piper Mg Bronchitis 490 Assessments Encounter Date Diagnosis (ICD Code) Assessment Notes Treatment Notes Treatment Clinical Notes Section Notes 08/22/2025 Bronchitis (ICD-10 - 490) Plan Of Treatment Medication Medication Name Sig Start Date Stop Date Notes Albuterol Sulfate (2.5 MG/3M L) 0.083% 3 mL as needed Inhalation every 6 hrs, prn 08/22/2025 Benzonatate 200 MG 1 capsule as needed Orally Three times a day, prn 08/22/2025 Nebulizer Mask Adult - as directed 08/22/2025 Next Appt Details Follow Up: via phone to repo rt test results, Reason: Provider Name:Piper tyson, 08/31/2025 10:45:00 AM, [address], [place], [id number], Progress Notes * Noreen ALARCONinDOB:[birth year] (65 yo M)Acc No.[id number]:08/22/2025 Progress Notes Patient: Jenn KOKONoreenin Provider: CAREY Lei :1960 A ge:65 Y S ex:Male Date:08/22/2025 Address:[address], [place], [id number] Pcp:Brett Conrad Subjective: * Chief Complaints: * 1 . Still not feeling well. * HPI: E NT/respiratory: Pt states these symptoms are not getting no better since last time he was here. Pt states he is doing a lot of wheezing and his sides are hurting. 65 year old male presents with c/o sore throat s wallowing painful. c/o cough d ry without any sputum production. c/o nasal congestion a ll the time, green drainage. c/o Fever n ot sure but w ith chills. c/o headache.? Denies : ear pain. D enies : Chest Pain. D enies : Short of Breath. D enies : chest congestion. D enies : dizziness. * ROS: D ERMATOLOGY: no R alexandra. [...] Hospitalization/Major Diagno stic Procedure: P rostatis, UTI- [facility], [place], operated by [facility], [place], [place] 10/09/2017, RT Leg Thrombophlebitis- [facility] [place] 04/19/2019. * Family History: F ather: alive, [...] 2 tab(s) orally once daily , Taking Esomeprazole Magnesium 40 MG Capsule Delayed Release TAKE 1 CAPSULE BY MOUTH DAILY , Taking Cyclobenzaprine HCl 5 MG Tablet 1 tab(s) orally 3 times a day, prn , Discontinued Zithromax Z-Daron 250 MG Tablet as directed Orally , Medication List reviewed and reconciled with the patient * Allergies: N .K.D.A. Objective: * Vitals: W t: 252, Temp: 98.0, BP: 120/70, HR: 75, Nurse: елена, Ht: 71.50, BMI:34.65. * Examination: E NT/Respiratory: General Appearance: N AD. E ars: a uditory canals normal bilaterally, TM's WNL. N ose : t urbinates red, congested. S inuses : n on tender bilaterally. O ral cavity : e rythema without exudate on pharynx. N kaila : s upple, no cervical lymphadenopathy. H eart : R RR. L ungs: e xpiratory wheezes. ? Assessment: * Assessment: 1. [place] [address] (Primary) Plan: * Treatment: Value Reference Range C USPU {Normal Upper Respiratory Donna} - * Antonette Lemus 08/24/2025 08 :28:49 AM EST > See phone encounter ?LAB: CBC Fingerstick (in house) (Collection Date & Time - 08/22/2025)* Value Reference Range w bc 10.3 3.5 - 10 * l ym 21.2 15 - 50 * m id 5.7 2 - 15 * g ran 73.1 35 - 80 * r bc 5.47 3.5 - 5.5 * h gb 17.2 11.5 - 16.5 * h ct 51.4 35 - 55 * m cv 93.9 75 - 100 * m ch 31.5 25 - 35 * m chc 33.5 31 - 38 * p lat 156 100 - 400 * Selena Angulo 08/22/2025 01:00:49 PM EST > Provider reviewed results while patient in office. ?LAB: TEN-Upper Respiratory PCR (Collection Date & Time - 08/22/2025)? Abnormal* Antonette Lemus 08/24/2025 08 :28:49 AM EST > See phone encounter ?Imaging: CXR (Performed Date - 08/22/2025)?Negative* Antonette Lemus 08/23/2025 04 :47:54 PM EST > pt informed * Procedure Codes: 3 6416 CAPILLARY BLOOD DRAW, 02942 CBC WITH AUTO DIFF * Follow Up: v ia phone to report test results * Images: Billing Information: * Visit Code: 54741 Office Visit, Est Pt., Level 3. * Procedure Codes: 14887 CAPILLARY BLOOD DRAW. 14097 CBC WITH AUTO DIFF. * Electronic signature of CAREY Powell on 08/28/2025 at 03:44 PM EST Sign off status: Pending * Provider: CAREY Lei Date: 10/22/2024 Generated for Liai ng/Shirin/eTransmitting on: 10/28/2024 03:44 PM EST History and Physical Notes * HPI (History of Present Illness) Category Sub-Category Detail Notes Category Not es ENT/respiratory sore throat swallowing painful ear pain Short of Breath Chest Pain cough dry without any sput um production Fever not sure but with ch ills headache chest congestion nasal congestion all the time, green drainage dizziness Examination Category Sub-Category Detail Notes Category Not es ENT/Respiratory Oral cavity : erythema without exudate on pharynx Sinuses : non tender bilateral ly Ears: auditory canals norm al bilaterally, TM's WNL Neck : supple, no cervical lymphadenopathy Heart : RRR Lungs: expiratory wheezes General Appearance: NAD Nose : turbinates red, shahzad ested
--- OUTSIDE RECORDS SUMMARY | 2025-08-24 06:00 | XMS_ITS ---
Author Organization [facility] Address [address] [facility] [address] [facility] [address] [place] [id number] Care Team Providers Care Rubber Stamp Dies Inspector Name Role Phone Brett Conrad Primary Care Provider Piper Mg Unavailable [phone] Allergies No Known Allergies REASON FOR VISIT worse ,weak ,green mucus Encounters Encounter Location Date Provider Diagnosis Aile[place] [address] [facility] [address] [facility] [address] [place] [id number] 08/24/2025 Piper Mg Plan Of Treatment Next Appt Details Provider Name:Piper Ritter y, 08/31/2025 10:45:00 AM, [address] [facility] [address] [facility], [address], [place], [phone], Progress Notes * Noreen ALARCONinDOB:[birth year] (65 yo M)Acc No.[id number]:08/24/2025 Progress Notes Patient: Padmini ROY Provider: CAREY Lei :1960 A ge:65 Y S ex:Male Date:08/24/2025 Address:[address], [place] Pcp:Brett Conrad Subjective: * Chief Complaints: * 1 . Worse ,weak ,green mucus. * ROS: D ERMATOLOGY: no R alexandra. [...] Diagno stic Procedure: P rostatis, UTI- [facility], [place], [place] 10/09/2017, RT Leg Thrombophlebitis- [facility] [place] 04/19/[place]. * Family History: [...] Frequency: ,Years: , Determination:, occasional, beer. * Allergies: N .K.D.A. Objective: * Vitals: Assessment: Plan: * Treatment: * Images: Billing Information: * Visit Code: * Procedure Codes: * Electronic signature of CAREY Powell on 08/28/2025 at 03:45 PM EST Sign off status: Pending * Provider: CAREY Lei Date: 10/24/2024 Generated for Dudley solis/Shirin/Maximinoransmitting on: 10/28/2024 03:45 PM EST
--- OUTSIDE RECORDS SUMMARY | 2025-08-28 08:32 | XMS_ITS ---
Author Organization [facility] Address [facility]ly [facility], [facility] [address] [facility] [address] [place] [phone] Care Team Providers Care Signal Operator Technical Name Role Phone Brett Conrad Primary Care Provider REASON FOR VISIT Message Encounters Encounter Location Date Provider Diagnosis [facility] [address] [facility] [address] [facility] [address] [place] [phone] 08/28/2025 Brett Conrad Bronchitis due to Staphylococcus aureus J40 Assessments Encounter Date Diagnosis (ICD Code) Assessment Notes Treatment Notes Treatment Clinical Notes Section Notes 08/28/2025 Bronchitis due to Staphylococcus aureus (ICD-10 - J40) Plan Of Treatment Pending Test Test Name Order Date CXR 08/28/2025 Next Appt Details Provider Name:Piper tyson, 08/31/2025 10:45:00 AM, [address] [facility] [address] [facility], [address], [place], [phone], Progress Notes * Noreen ALARCONinDOB:[birth year] (65 yo M)Acc No.[id number]:08/28/2025 Patient: Padmini ROY :1960 A ge:65 Y S ex:Male Address:[address] [address], [place], [address] Subjective: * Chief Complaints: * M essage * Medical History: * Surgical History: * Hospitalization/Major Diagno stic Procedure: * Medications: Objective: * Vitals: * Physical Examination: Assessment: * Assessment: 1. B ronchitis due to Staphylococcus aureus - J40 Plan: * Treatment: * Procedure Codes: * true * Date: Generated for Dudley Ambrose/Leola on: 10/28/2024 03:45 PM EST
--- OUTSIDE RECORDS SUMMARY | 2025-08-28 15:45 | XMS_ITS | Patient Health Record ---
Author Organization [facility] Address [address] [place] [phone] Care Team Providers Care Heater Installer Name Role Phone Brett Conrad Primary Care Provider [phone] Héctor Garza Unavailable [phone] Piper Mg Unavailable [phone] Allergies No Known Allergies Results Component Value [...] Interpretation:Normal Performing Lab: Notes/Report: Test performed by [facility] , [address], [place] [address] Smooth Decker MD, Maintenance Engineer [employer] CLIA: [id number] Sodium 137 135-145 mmol/L Potassium 4.6 3.5-5.3 [...] Interpretation:Normal Performing Lab: Notes/Report: Test performed by [facility], [address] , [place] [address] Smooth Decker MD, Maintenance Engineer [employer] CLIA: [id number] Cholesterol 150 <200 mg/dL Triglycerides 76 <150 [...] ATPIII guidelines LDL/HDL Ratio 2.1 <3.3 Ratio ____ LDL Cholesterol Patient History ____ Test Date: 03/27/2025 LDL Results: 92 Units: mg/dL % Change: - ____ P-PSA Reviewed date:03/28/2025 10:57:52 AM Interpretation:Normal Performing Lab: Notes/Report: Test performed by [facility] [address] , [place] [address] Smooth Decker MD, Maintenance Engineer [employer] CLIA: [id number] PSA 2.40 <4.00 ng/mL Please note this is an ultrasensitive PSA assay with a lower limit of detection of 0.014 ng/mL. This test is performed by the [employer] ECLIA methodology. Values obtained with different assay methods or kits cannot be directly compared. P-TSH reflex to FT4 Reviewed date:03/28/2025 10:57:52 AM Interpretation:Normal Performing Lab: Notes/Report: Test performed by [facility] [address] [place] [address] , [place] [address] Smooth Decker MD, Maintenance Engineer [employer] CLIA: [id number] TSH reflex to FT4 1.08 0.43-5.25 mU/L Covid test (in house) Reviewed date:09/28/2024 11:03:09 AM Interpretation:neg Performing Lab: Notes/Report: neg Result: neg Influenza Screen (in house) Reviewed date:09/28/2024 11:03:21 AM Interpretation:neg Performing Lab: Notes/Report: neg results neg X ray : Spine, cervical A-P and Lateral Reviewed date:05/25/2025 05:37:15 PM Interpretation:Negative Performing Lab: Notes/Report: Negative CBC Fingerstick (in house) Reviewed date:08/22/2025 02:08:54 [...] GS Gram Stain: GS >25 White Blood Cell s /LPF GS <10 Epithelial Cells / LPF GS Rare Gram Positive Diplococci GS Few Gram Positive Cocci in Chains GS Rare Gram Positive Cocci in Clusters CUSPU ORGANISM 1: Normal Upper Respiratory Donna CUSPU {Normal Upper Respiratory Donna} TEN-Upper Respiratory PCR Reviewed date:08/24/2025 08:29:00 AM Interpretation:Abnormal Performing Lab: Notes/Report: Abnormal CXR Reviewed date:08/23/2025 04:48:02 PM Interpretation:Negative Performing Lab: Notes/Report: Negative Reason For Referral No Information Medications Medication SIG (Take, Route, Frequency, Duration) Notes Start Date End Date Status Esomeprazole Magnesium 40 MG TAKE 1 CAPS ULE BY MOUTH DAILY Active Cyclobenzaprine HCl 5 MG 1 tab(s) orally 3 times a day, prn Active Doxycycline Monohydrate 100 MG 1 capsule Orally twice a day; Duration: 10 days 08/24/2025 Active Albuterol Sulfate (2.5 MG/3ML) 0.083% 3 mL as needed Inhalation every 6 hrs, prn 08/22/2025 Active Tylenol 8 Hour Arthritis Lida n 650 MG 2 tab(s) orally once daily Active Nebulizer Mask Adult - as directed 08/22/2025 Active Bromfed DM 30-2-10 MG/5ML 5-10 mL Orally 4 times a day, prn 08/24/2025 Active Benzonatate 200 MG 1 capsule as needed Orally Three times a day, prn 08/22/2025 Active Immunizations Vaccine Route Administration Date Status [...] Risk Notes Problem Gastroesophageal reflux disease (disorder) (495334477) GERD [Gastroesophageal reflux disease] (530.81) Active confirmed Problem Hyperlipidemia (74909680) Hyperlipidemia (272.4) Active confirmed Problem Gastroesophageal reflux disease (204480444) GERD (gastroesophageal reflux disease) (K21.9) Active confirmed Problem Anxiety (42827255) Anxiety (F41.9) Active confi rmed Problem Obese class I (232720757421464) BMI 33.0-33.9,adult (Z68.33) Active confirmed Problem Chronic pain (13841182) Other chronic pain (G89.29) Active confirmed Problem Neck pain (59257217) Neck pain (M54.2) Active confirmed Problem Insomnia disorder related to another mental disorder (15156213) Psychophysiological insomnia (F51.04) Active confirmed Problem Osteoarthritis of knee (821181910) Primary osteoarthritis of right knee (M17.11) Active confirmed Problem Hyperlipidaemia (83786083) Hyperlipidemia, unspecified hyperlipidemia type (E78.5) Active confirmed Problem Cervical spondylosis without myelopathy (596132236) Osteoarthritis of spine with radiculopathy, cervical region (M47.22) Active confirmed Problem Lower urinary tract symptoms due to benign prostatic hypertrophy (22002988124909) Benign prostatic hyperplasia with lower urinary tract symptoms (N40.1) Active confirmed Problem Arthritis of right knee (5996995182054654) Arthritis of right knee (M17.11) Active confirmed Problem Seasonal allergic rhinitis (630312332) Seasonal allergic rhinitis, unspecified trigger (J30.2) Active confirmed Problem Hearing loss (26867738) 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 (H91.92) Active confirmed Problem Lumbosacral spondylosis without myelopathy (13344210) DJD (degenerative joint disease), lumbosacral (M47.817) Active confirmed Problem Plantar nerve lesion (008608742) 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 and BMI 33.0-33.9,adult Z68.33 [facility] [address] [place] [id number] 05/23/2025 Piper Crowdy Neck pain M54.2 and Muscle spasm M62.838 [facility] [address] [place] [id number] 08/22/2025 [facility] [address] [place] [id number] 11/03/2024 R Prem Anamaria GERD (gastroesophage al reflux disease) K21.9 [facility] [address] [place] [id number] 05/24/2025 R Prem Anamaria [facility] [address] [place] [id number] 08/17/2025 Piper Crowdy [facility] [address] [place] [id number] 08/24/2025 Piper Crowdy [facility] [address] [place] [id number] 08/28/2025 R Prem Anamaria Bronchitis due to Staphylococcus aureus J40 Assessments [...] M54.2) 05/23/2025 Muscle spasm (ICD-10 - M62.838) 08/22/2025 Bronchitis (ICD-10 - 490) 08/28/2025 Bronchitis due to Staphylococcus aureus (ICD-10 - J40) 03/27/2025 Hyperlipidemia, unspecified hyperlipidemia type (ICD-10 - E78.5) 03/27/2025 Prostate cancer screening (ICD-10 - Z12.5) 03/27/2025 intermediate use of drug (ICD-10 - Z79.899) 03/27/2025 BMI 33.0-33.9,adult (ICD-10 - Z68.33) Plan Of Treatment Pending Test Test Name Order Date CXR 08/28/2025 Next Appt Details Provider Name:Piper tyson, 08/31/2025 10:45:00 AM, [address], [address], [place], [place], [id number], Insurance Providers Payer Name Payer Address Payer Phone Subscriber Number Group Number Insured Name Patient Relationship to Insured Coverage Start Date Coverage End Date MEDICARE PART B [address] [address] [place] [address] [id number] Padmini Alarcon Self - patient is the insured [employer] [address] [place], [place] [address] [id number] Myrna Alarcon Spouse - patient is the spouse of the insured Medications Administered Medication Instructions Date of Administration Dosage Notes Dexamethasone 09/21/2016 1 mL Medical (General) History Medical History History ICD Code Hiatal Hernia, Stricture Tx 1992 GERD Varicose Veins Anxiety Elbow Tendinitis RT Thigh SVT, 04/2019 Colon polyps Surgical History Surgery Date(Month/Year) Tonsillectomy 2002 Colonoscopy, 2007, 2021 Anal Fistulectomy - Dr. Grace 11/17/19 14 Varicose Veins RT Knee Arthroscopy for Meniscal Tear Hospitalization History Reason Date(Month/Year) RT Leg Thrombophlebitis- [facility] [place] 019 Prostatis, U[place]- [place], [place] 10/09/2017
--- NOTE | 2025-08-28 15:47 | XR_ITS ---
FINAL REPORT CLINICAL HISTORY: BRONCHITIS DUE TO STAPHYLOCOCCUS AUREUS COMPARISON: 08/22/2025 FINDINGS: PA and lateral views of the chest were obtained. The cardiac and mediastinal silhouettes are within normal limits. The lungs are clear. There is no pleural effusion or pneumothorax. No acute osseous abnormality is identified. IMPRESSION: No radiographic evidence of acute cardiac or pulmonary disease. Reviewed, Interpreted and Dictated by Nuris Coronado MD Transcribed by Sonja Rodrigues Authenticated and [facility]
== END 2025-08-28 23:59 | disposition home or self-care (01) ==
LOC: RAD 15:43
PROVIDERS: PCP Physician Assistant; Visit Provider Family Medicine
DX: J40 Bronchitis, not specified as acute or chronic (principal)
CPT/HCPCS: 71046